=== PATIENT | male | born 1985 | race Caucasian/White ===

== ENCOUNTER 2023-10-30 15:57 | Emergency (ER) | payer MEDICAID, SELFPAY ==
[2023-10-30 16:03] VITALS: BP 156/90; PULSE 97; O2SAT 99
[2023-10-30 16:08] VITALS: BP 126/80; PULSE 87; RESP 18; TEMP 36.6; O2SAT 97; BMI 31.6
--- NOTE | 2023-10-30 16:08 | ED_ITS ---
HPI - Nausea/Vomiting/Diarrhea General Chief complaint: Nausea/Vomiting/Diarrhea Stated complaint: abd pain, pt reports coffee ground like vomiting Time Seen by Provider: 10/30/23 16:37 History of Present Illness HPI Narrative: Patient complains of epigastric pain and nausea for the past 3 days He is methadone dependent but he moved to [place] in his clinic is in [place] and he has has no car and he has not had his methadone in 5 days He denies fever denies diarrhea, there is no headache no confusion no chest pain no shortness of breath no dysuria no fever He also requests refill of his other psychiatric medications and says he has not been able to get them at his pharmacy He denies suicidal or homicidal thoughts, he has not hearing voices denies any psychiatric crisis Related Data Home Medications Medication Instructions Recorded Confirmed methadone 10 mg/mL oral concentrate 135 mg PO DAILY 10/30/23 10/30/23 Previous Rx's Medication Instructions Recorded clonidine HCl 0.2 mg tablet 0.2 mg PO TID #20 tabs 10/30/23 famotidine 20 mg tablet (Pepcid) 20 mg PO BID Reflux pain #14 tabs 10/30/23 gabapentin 300 mg capsule 300 mg PO TID #20 caps 10/30/23 hydroxyzine HCl 50 mg tablet 50 mg PO BID PRN anxiety #7 tabs 10/30/23 olanzapine 5 mg tablet 5 mg PO DAILY #7 tabs 10/30/23 varenicline 1 mg tablet 1 mg PO BID #14 tabs 10/30/23 Allergies Allergy/AdvReac Type Severity Reaction Status Date / Time aspirin [ASPIRIN] Allergy Severe ANAPHYLAXIS Verified 10/30/23 16:07 [facility] Past Medical History Source: nursing notes reviewed Social History Social History Advance Directives: No Advance Directives Information Provided: No Physical Exam 2 Vital Signs: Vital Signs: Last Vital Signs Temp 98.0 F 10/30/23 18:57 Pulse 86 10/30/23 18:57 Resp 17 10/30/23 18:57 BP 144/93 H 10/30/23 18:57 Pulse Ox 98 10/30/23 18:57 O2 Del Method Room Air 10/30/23 18:57 BMI result Body Mass Index 31.6 General appearance mildly uncomfortable, no acute distress The eyes are anicteric no pallor The pharynx is clear mucous membranes are moist Neck is supple Chest is clear to auscultation bilateral with full symmetric equal breath sounds no respiratory distress Heart no murmur Abdomen soft nontender Extremities full range of motion x4 Neuro no focal deficit , interaction comprehension and expression are normal, gait and balance are normal, cranial nerves 2-12 intact as tested Skin no rash Course Course Course Narrative: 16:10pm - 38-year-old male presenting to the ER with complaints of nausea/vomiting and abdominal cramping that all started yesterday. He denies any fevers, chest pain or shortness of breath, recent falls or trauma, recent antibiotic usage, sick contacts or others with similar symptoms, possible bad food exposure, diarrhea constipation, dysuria, black or bloody stools, rashes or any other symptoms complaints or concerns at this time. Plan: Patient was given Zofran while in the triage. Will obtain labs, COVID/RSV/flu swab, UA and patient will be sent back to the waiting room to be evaluated the E Initial exam showed some epigastric tenderness no rebound no guarding no other tenderness in abdomen Patient is 5 days without his methadone and is likely in withdrawal with abdominal discomfort and vomiting His labs were checked chemistry hematology liver function tests lipase, no acute abnormality Serology was negative for COVID and flu He responded well to nausea medication was tolerating both solid and liquid p.o. without nausea or vomiting We called his clinic which confirmed he normally takes 135 mg of methadone As he is 5 days out we discussed with the pharmacist who said a half dose of 70 would be appropriate and he is given 70 mg of methadone He continued to have a mild epigastric discomfort and a repeat exam of his abdomen showed no significant tenderness except mild epigastric tenderness no rebound no guarding He is given Pepcid another Zofran and he tolerates p.o. Case discussed with Dr. tamez who agrees symptoms are likely methadone withdrawal/opiate withdrawal and patient is advised to follow with his methadone clinic tomorrow, they are open and he is advised if symptoms get worse or not improving he can return to the ER any time I also gave a refill for 1 week of his psych meds as he says he is out of medication Medications Administered Discontinued Medications Generic Name Dose Route Start Last Admin Trade Name Freq PRN Reason Stop Dose Admin Famotidine 20 mg 10/30/23 18:22 10/30/23 18:42 Famotidine 20 Mg Tablet PO 10/30/23 18:23 20 mg ONCE ONE Administration Methadone HCl 70 mg 10/30/23 17:31 10/30/23 18:05 Methadone Hcl 20 Mg/2 Ml Oral.Conc PO 10/30/23 17:32 70 mg ONCE ONE Administration Ondansetron HCl 4 mg 10/30/23 16:10 10/30/23 16:12 Ondansetron Odt 4 Mg Tab.Rapdis TRANSLINGU 10/30/23 16:11 4 mg ONCE ONE Administration Ondansetron HCl 4 mg 10/30/23 18:22 10/30/23 18:42 Ondansetron Odt 4 Mg Tab.Rapdis TRANSLINGU 10/30/23 18:23 4 mg ONCE ONE Administration Oxycodone HCl 10 mg 10/30/23 18:52 10/30/23 18:57 Oxycodone Hcl Immed Release 5 Mg Tablet PO 10/30/23 18:53 10 mg ONCE ONE Administration Medical Decision Making Lab Data MDM Lab Attestation statement: I reviewed the patient's lab results. 10/30/23 16:30 10/30/23 16:30 Labs: Lab Results 10/30/23 Range/Units 16:30 WBC 10.0 (4.8-10.8) X10*3/uL RBC 5.11 (4.60-5.80) X10*6/uL Hgb 14.3 (14.0-18.0) g/dl Hct 43.1 (42.0-52.0) % MCV 84.3 (80.0-98.0) fL MCH 28.0 (27.0-33.0) pg MCHC 33.2 (31.0-36.0) g/dl RDW 11.6 (11.0-16.0) % Plt Count 343 (160-400) X10*3/uL MPV 10.2 (9.4-12.4) fL Immature Gran % (Auto) 0.2 (0.0-0.4) % Neut % (Auto) 77.5 H (45-73) % Lymph % (Auto) 15.7 L (20-40) % [place] % (Auto) 6.0 (2-11) % Eos % (Auto) 0.3 (0-4) % Baso % (Auto) 0.3 (0-2) % Lymph # (Auto) 1.6 (1.2-4.9) X10*3/uL [place] # (Auto) 0.6 (0.1-1.2) X10*3/uL Eos # (Auto) 0.0 (0.0-0.4) X10*3/uL Baso # (Auto) 0.0 (0.0-0.2) X10*3/uL Abs Immat Gran (auto) 0.02 (0.00-0.03) X10*3/uL Absolute Neuts (auto) 7.8 (2.0-8.3) x10*3/uL Absolute Nucleated RBC 0.000 (0.0-0.012) X10*3/uL Nucleated RBC % (auto) 0.0 (0.0-0.2) /100WBC Sodium 139 (135-145) mmol/L Potassium 3.8 (3.3-5.1) mmol/L Chloride 100 (96-108) mmol/L Carbon Dioxide 28 (22-29) mmol/L Anion Gap 15 (12-20) BUN 16 (9-16) mg/dL Creatinine 0.84 (0.5-1.4) mg/dL Estim Creat Clear Calc 122.7 Estimated GFR > 60 Random Glucose 99 (60-115) mg/dL Calcium 9.7 (8.4-10.2) mg/dL Magnesium 2.5 (1.6-2.6) mg/dL Total Bilirubin 0.6 (0.0-1.0) mg/dL Direct Bilirubin 0.2 (0.0-0.5) mg/dL AST 17 (5-37) U/L ALT 27 (0-40) U/L Alkaline Phosphatase 100 (39-117) U/L Total Protein 8.1 H (6.5-8.0) g/dL Albumin 4.8 (3.5-5.0) g/dL Lipase 7 L (8-78) U/L Influenza Type A (PCR) NEGATIVE (Negative) Influenza Type B (PCR) NEGATIVE (Negative) RSV RNA Qual (PCR) NEGATIVE (Negative) SARS-CoV-2 RNA (RT-PCR) NEGATIVE (Negative) Discharge Plan Discharge Clinical Impression: Opiate withdrawal, Medication refill Patient Disposition: Home, Self-Care Additional Instructions: I refilled your medications for a week Pepcid helps with stomach acid pain Most importantly think most of your nausea and discomfort is coming from withdrawal as you have not been able to get methadone Best plan is to go to your clinic tomorrow and get your dose, if you can no longer make it your clinic because you do not have a car talk to them and they may be able to find a clinic for you here in [place] Return to the ER any time for any worse condition or any concerns Prescriptions: New clonidine HCl 0.2 mg tablet 0.2 mg PO TID Qty: 20 0RF gabapentin 300 mg capsule 300 mg PO TID Qty: 20 0RF hydroxyzine HCl 50 mg tablet 50 mg PO BID PRN (Reason: anxiety) Qty: 7 0RF varenicline 1 mg tablet 1 mg PO BID Qty: 14 0RF olanzapine 5 mg tablet 5 mg PO DAILY Qty: 7 0RF famotidine [Pepcid] 20 mg tablet 20 mg PO BID Qty: 14 0RF No Action methadone 10 mg/mL Concentrate 135 mg PO DAILY Interventions: ED Discharge Assessment Last Done: 10/30/23 19:32 Discharge Date/Time: 10/30/23 19:33
[2023-10-30] MEDS: Ondansetron ODT 4 MG TAB.RAPDIS TRANSLINGU ×2 (16:12→18:42)
[2023-10-30 16:34] LABS: MANUAL DIFF FLAG NO
[2023-10-30 16:35] LABS: Basophils Percent Auto 0.3 % (0-2); Eosinophils Percent Auto 0.3 % (0-4); Hematocrit 43.1 % (42.0-52.0); Hemoglobin 14.3 g/dl (14.0-18.0); Imm Gran Abs Auto 0.02 X10*3/uL (0.00-0.03); Imm Gran Pct Auto 0.2 % (0.0-0.4); Lymphocytes Absolute Auto 1.6 X10*3/uL (1.2-4.9); Lymphocytes Percent Auto 15.7 % (20-40); Mean Corpuscular HGB Conc 33.2 g/dl (31.0-36.0); Mean Corpuscular Volume 84.3 fL (80.0-98.0); Mean Platelet Volume 10.2 fL (9.4-12.4); Monocytes Absolute Auto 0.6 X10*3/uL (0.1-1.2); Neutrophils Absolute Auto 7.8 x10*3/uL (2.0-8.3); Neutrophils Percent Auto 77.5 % (45-73); Platelet Count 343 X10*3/uL (160-400); Red Blood Count 5.11 X10*6/uL (4.60-5.80); Red Cell Distribution Width 11.6 % (11.0-16.0)
[2023-10-30 16:51] LABS: Alanine Aminotransferase 27 U/L (0-40); Albumin Level 4.8 g/dL (3.5-5.0); Alkaline Phosphatase 100 U/L (39-117); Anion Gap 15 (12-20); Aspartate Amino Transferase 17 U/L (5-37); Bilirubin Direct 0.2 mg/dL (0.0-0.5); Bilirubin Total 0.6 mg/dL (0.0-1.0); Blood Urea Nitrogen 16 mg/dL (9-16); Calcium 9.7 mg/dL (8.4-10.2); Carbon Dioxide 28 mmol/L (22-29); Chloride 100 mmol/L (96-108); Creatinine Clr Calc Pharmacy 122.7; Estimated Glomerular Filt Rate > 60; Glucose Random 99 mg/dL (60-115); Lipase 7 U/L (8-78); Magnesium 2.5 mg/dL (1.6-2.6); Potassium 3.8 mmol/L (3.3-5.1); Sodium 139 mmol/L (135-145); Total Protein 8.1 g/dL (6.5-8.0)
[2023-10-30 17:23] LABS: Influenza A PCR NEGATIVE (Negative); Influenza B PCR NEGATIVE (Negative); Resp Syncy Virus RNA Qual PCR NEGATIVE (Negative); SARS COV2 PCR INHOUSE NEGATIVE (Negative)
--- NOTE | 2023-10-30 17:37 | PC.NURSE ---
methadone dose confirmed with CHELLE cobb T [phone] pt last dose 135mg on 10/24/2023 at 1045- verification faxed to pharmacy
[2023-10-30] MEDS: methADONE HCl 20 MG/2 ML ORAL.CONC 70 MG PO (18:05)
--- NOTE | 2023-10-30 18:30 | HE.PHANOTE ---
re methadone pt [facility], dose of 135 mg last dosed 10/24/23 @1967 emmanuel
[2023-10-30] MEDS: Famotidine 20 MG TABLET PO (18:42)
[2023-10-30 18:57] VITALS: BP 144/93; PULSE 86; RESP 17; TEMP 36.7; O2SAT 98
[2023-10-30] MEDS: oxyCODONE HCl Immed Release 5 MG TABLET 10 MG PO (18:57)
--- NOTE | 2023-10-30 19:04 | PC.NURSE ---
pt medicated per CONSUELO- erin DC'd by BONNIE Gomez
== END 2023-10-30 19:33 | disposition home or self-care (01) ==
PROVIDERS: Physician Assistant Medical; Emergency Provider Emergency Medicine Emergency Medical Services
DX: F11.23 Opioid dependence with withdrawal (principal); Z76.0 Encounter for issue of repeat prescription; Z11.52 Encounter for screening for COVID-19; Z20.828 Contact with and (suspected) exposure to other viral communicable diseases
CPT/HCPCS: 0241U; 80053; 82248; 83690; 83735; 85025; 99283

== ENCOUNTER 2024-04-14 06:03 | Emergency (ER) | payer MEDICAID, SELFPAY ==
--- NOTE | 2024-04-14 | ECG_ITS ---
Test Reason : SOB Blood Pressure : / mmHG Vent. Rate : 087 BPM Atrial Rate : 087 BPM P-R Int : 148 ms QRS Dur : 082 ms QT Int : 398 ms P-R-T Axes : 063 012 027 degrees QTc Int : 478 ms Normal sinus rhythm with sinus arrhythmia Cannot rule out Anterior infarct , age undetermined Abnormal ECG No previous ECGs available Referred By: Generic ED Physician Electronically Signed By:CALEB TRUONG
--- NOTE | ~2024-04-14 | XR_ITS ---
EXAMINATION: XR CHEST CLINICAL INFORMATION: Pain COMPARISON: None available. TECHNIQUE: 2 views of the chest were obtained. FINDINGS: No significant abnormality is noted involving the heart, lungs, mediastinum, bony thorax or soft tissues. XR/XR chest 2V IMPRESSION: Unremarkable examination.
[2024-04-14 06:12] VITALS: BP 137/83; PULSE 98; O2SAT 96
[2024-04-14 06:14] VITALS: BP 139/70; PULSE 90; RESP 18; TEMP 37; O2SAT 96; BMI 33.3
--- NOTE | 2024-04-14 07:15 | ED_ITS ---
HPI - Chest Pain General Chief Complaint: Dyspnea Stated Complaint: SOB Time Seen by Provider: 04/14/24 07:05 Source: patient and old records reviewed Mode of arrival: ambulatory Limitations: no limitations History of Present Illness ED Provider: JORJE SOLANO narrative: 38 yo male with mood disorder, opiate use disorder smoked THC at 2am last night then developed abrupt onset chest tightness felt his L arm was tingly he notes it lasted about 20 min but his arm feels tingly still he used his INH which helped. He thinks there was something in the THC he got it off the straight it tasted like plastic and smelled weird. He denies SI/HI he has no pain now. No coughing. He denies hx of this in the past. He is watching games on his phone using his L hand. MD complaint: chest pain Onset (ago): hour(s) (2am) Timing of current episode: now resolved Prior episodes: No Onset: associated with drug use Pain location: left chest Pain radiation: left arm Severity: moderate Quality: tightness Relieving factors: nothing Exacerbating factors: other Context: other (drug use) Associated symptoms: dyspnea Treatment prior to arrival: other (albuterol) Related Data Home Medications ?Medication ?Instructions ?Recorded ?Confirmed methadone 10 mg/mL oral concentrate 135 mg PO DAILY 10/30/23 10/30/23 Previous Rx's ?Medication ?Instructions ?Recorded clonidine HCl 0.2 mg tablet 0.2 mg PO TID #20 tabs 10/30/23 famotidine 20 mg tablet (Pepcid) 20 mg PO BID Reflux pain #14 tabs 10/30/23 gabapentin 300 mg capsule 300 mg PO TID #20 caps 10/30/23 hydroxyzine HCl 50 mg tablet 50 mg PO BID PRN anxiety #7 tabs 10/30/23 olanzapine 5 mg tablet 5 mg PO DAILY #7 tabs 10/30/23 varenicline 1 mg tablet 1 mg PO BID #14 tabs 10/30/23 Allergies Allergy/AdvReac Type Severity Reaction Status Date / Time aspirin [ASPIRIN] Allergy Severe ANAPHYLAXIS Verified 04/14/24 06:17 Review of Systems 2 Review of Systems: Constitutional : No Weight loss, No Fever, No Chills ENT/Mouth : No sore throat, No Rhinorrhea Eyes: No Eye Pain, No Swelling Cardiovascular : pos Chest Pain, pos SOB, no Dyspnea on Exertion, No Orthopnea, No Edema, No Palpitations Respiratory : No Cough, No Sputum Gastrointestinal : no Nausea, No Vomiting, No Diarrhea, No abdominal Pain, No Hematochezia, No Melena Genitourinary : No Dysuria, No Urinary Frequency Musculoskeletal : No joint pain, No Myalgias, No Joint Swelling Skin : No Skin Lesions, No rash Neuro : No Weakness, pos Numbness, No Dizziness, No Headache Psych : No Anxiety/Panic, No Depression All other systems reviewed and are negative [facility] Past Medical History Attestation statement: The following information was validated with the patient. Source: old records reviewed Medical History Mood disorder Opiate use Social History Social History Smoked in Last 30 Days: No Use of substances other than those prescribed or required for medical reasons: Yes Substance Use Type: Marijuana Advance Directives: No Advance Directives Information Provided: Yes Do you have a plan to hurt others: No Plan Physical Exam 2 Vital Signs: Vital Signs: Last Vital Signs Temp 98.6 F 04/14/24 06:14 Pulse 90 04/14/24 06:14 Resp 18 04/14/24 06:14 BP 130/73 04/14/24 07:28 Pulse Ox 96 04/14/24 06:14 O2 Del Method Room Air 04/14/24 06:14 BMI result Body Mass Index 33.3 Appearance: Alert. Oriented X3. No acute distress. Eyes: Pupils equal, round and reactive to light. ENT: Pharynx normal. Neck: Normal inspection. Neck supple. CVS: Normal heart rate and rhythm. Pulses normal. Respiratory: No respiratory distress. Breath sounds normal. Abdomen: Soft and nontender. Skin: Skin warm and dry. Normal skin color. Normal skin turgor. Extremities: No lower extremity edema. No calf ttp bilateral UE and LE 2+ pulses intact he states he feels like his L arm is more tingly but he can feel me touching his hand Neuro: Oriented X 3. No motor deficit. No sensory deficit. Medications Administered Discontinued Medications Generic Name Dose Route Start Last Admin Trade Name Freq PRN Reason Stop Dose Admin Lorazepam 0.5 mg 04/14/24 07:15 08/18/24 07:31 Lorazepam 0.5 Mg Tablet PO 04/14/24 07:16 0.5 mg ONCE ONE Administration Medical Decision Making Medical Decision Making [facility] Narrative: 38 yo male with mood disorder, opiate use disorder smoked THC at 2am last night here with c/o atypical chest pain, L arm tingling after cocaine use he is NV intact no pain now and BPs and distal pulses intact doubt dissection would be atypical for pain to resolve - at this time the patient is not toxic appearing and he is watching his phone eating and laughing using his L hand. Labs, CXR, EKG, drug screen. Suspect side effect of drug use such as stimulant and cocaine maybe bronchospasm Differential Diagnosis Differential Diagnoses: The differential diagnosis associated with the presentation includes atypical chest pain, PTX, drug use pulses intact BPs symmetric doubt dissection PERC negative doubt VTE Admission/Observation Consideration of admission/observation: Escalation of care including admission/observation considered wants to leave prior to test results aware results are pending does not want to provide urine studies feels fine walking around room alert and oriented clinically sober Lab Data [facility] Lab Attestation statement: I reviewed the patient's lab results. 04/14/24 07:37 04/14/24 07:37 Labs: Lab Results 04/14/24 04/14/24 Range/Units 06:41 07:37 WBC 12.7 H (4.8-10.8) X10*3/uL RBC 4.79 (4.60-5.80) X10*6/uL Hgb 13.8 L (14.0-18.0) g/dl Hct 41.2 L (42.0-52.0) % MCV 86.0 (80.0-98.0) fL MCH 28.8 (27.0-33.0) pg MCHC 33.5 (31.0-36.0) g/dl RDW 11.5 (11.0-16.0) % Plt Count 300 (160-400) X10*3/uL MPV 10.2 (9.4-12.4) fL Immature Gran % (Auto) 0.4 (0.0-0.4) % Neut % (Auto) 63.1 (45-73) % Lymph % (Auto) 24.9 (20-40) % [place] % (Auto) 7.7 (2-11) % Eos % (Auto) 3.5 (0-4) % Baso % (Auto) 0.4 (0-2) % Lymph # (Auto) 3.2 (1.2-4.9) X10*3/uL [place] # (Auto) 1.0 (0.1-1.2) X10*3/uL Eos # (Auto) 0.5 H (0.0-0.4) X10*3/uL Baso # (Auto) 0.1 (0.0-0.2) X10*3/uL Abs Immat Gran (auto) 0.05 H (0.00-0.03) X10*3/uL Absolute Neuts (auto) 8.0 (2.0-8.3) x10*3/uL Absolute Nucleated RBC 0.000 (0.0-0.012) X10*3/uL Nucleated RBC % (auto) 0.0 (0.0-0.2) /100WBC Sodium 139 (135-145) mmol/L Potassium 4.5 (3.3-5.1) mmol/L Chloride 101 (96-108) mmol/L Carbon Dioxide 25 (22-29) mmol/L Anion Gap 18 (12-20) BUN 15 (9-16) mg/dL Creatinine 0.91 (0.5-1.4) mg/dL Estim Creat Clear Calc 116.2 Estimated GFR > 60 Random Glucose 104 (60-115) mg/dL Calcium 9.8 (8.4-10.2) mg/dL Magnesium 2.6 (1.6-2.6) mg/dL Influenza Type A (PCR) NEGATIVE (Negative) Influenza Type B (PCR) NEGATIVE (Negative) RSV RNA Qual (PCR) NEGATIVE (Negative) SARS-CoV-2 RNA (RT-PCR) NEGATIVE (Negative) Independent Interpretation I performed an independent interpretation of an: EKG and Plain X-Ray (normal ) Interpretation: Rate: 74 Rhythm: NSR [place]: normal Normal P waves. Normal MANUELA. Normal QRS complex. ST T wave : inverted t wave III, no ASPEN qTC: 452 prior studies: no acute ischemia The study has been interpreted contemporaneously by me. . Radiology Impression Discussion of test interpretation with radiology: I have reviewed the radiologist's reading. External Record Review External record reviewed: Inpatient record Discharge Plan Discharge Clinical Impression: Atypical chest pain, Paresthesia Patient Disposition: Home, Self-Care Instructions: Chest Pain (ED), Paresthesia (ED) Additional Instructions: not all of your tests results are back in if anything unusual we will call you return for any worsening symptoms or concerns do not smoke that marijuana again suspect it is laced with cocaine or PCP based off your symptoms rest and stay hydrated today you are leaving prior to all your results being back Prescriptions: No Action methadone 10 mg/mL Concentrate 135 mg PO DAILY clonidine HCl 0.2 mg tablet 0.2 mg PO TID Qty: 20 0RF gabapentin 300 mg capsule 300 mg PO TID Qty: 20 0RF hydroxyzine HCl 50 mg tablet 50 mg PO BID PRN (Reason: anxiety) Qty: 7 0RF varenicline 1 mg tablet 1 mg PO BID Qty: 14 0RF olanzapine 5 mg tablet 5 mg PO DAILY Qty: 7 0RF famotidine [Pepcid] 20 mg tablet 20 mg PO BID Qty: 14 0RF Print Language: Telugu
[2024-04-14 07:20] LABS: Influenza A PCR NEGATIVE (Negative); Influenza B PCR NEGATIVE (Negative); Resp Syncy Virus RNA Qual PCR NEGATIVE (Negative); SARS COV2 PCR INHOUSE NEGATIVE (Negative)
[2024-04-14 07:26] VITALS: BP 127/77
[2024-04-14 07:28] VITALS: BP 130/73
[2024-04-14] MEDS: LORazepam 0.5 MG TABLET PO (07:31)
[2024-04-14 07:41] LABS: MANUAL DIFF FLAG NO
[2024-04-14 07:44] LABS: Basophils Absolute Auto 0.1 X10*3/uL (0.0-0.2); Basophils Percent Auto 0.4 % (0-2); Eosinophils Absolute Auto 0.5 X10*3/uL (0.0-0.4); Eosinophils Percent Auto 3.5 % (0-4); Hematocrit 41.2 % (42.0-52.0); Hemoglobin 13.8 g/dl (14.0-18.0); Imm Gran Abs Auto 0.05 X10*3/uL (0.00-0.03); Imm Gran Pct Auto 0.4 % (0.0-0.4); Lymphocytes Absolute Auto 3.2 X10*3/uL (1.2-4.9); Lymphocytes Percent Auto 24.9 % (20-40); Mean Corpuscular HGB Conc 33.5 g/dl (31.0-36.0); Mean Corpuscular Hemoglobin 28.8 pg (27.0-33.0); Mean Platelet Volume 10.2 fL (9.4-12.4); Monocytes Percent Auto 7.7 % (2-11); Neutrophils Percent Auto 63.1 % (45-73); Platelet Count 300 X10*3/uL (160-400); Red Blood Count 4.79 X10*6/uL (4.60-5.80); Red Cell Distribution Width 11.5 % (11.0-16.0); White Blood Count 12.7 X10*3/uL (4.8-10.8)
[2024-04-14 07:55] LABS: Anion Gap 18 (12-20); Blood Urea Nitrogen 15 mg/dL (9-16); Calcium 9.8 mg/dL (8.4-10.2); Carbon Dioxide 25 mmol/L (22-29); Chloride 101 mmol/L (96-108); Creatinine Clr Calc Pharmacy 116.2; Estimated Glomerular Filt Rate > 60; Glucose Random 104 mg/dL (60-115); Potassium 4.5 mmol/L (3.3-5.1); Sodium 139 mmol/L (135-145)
[2024-04-14 08:08] LABS: Magnesium 2.6 mg/dL (1.6-2.6)
[2024-04-14 08:30] VITALS: BP 131/76; PULSE 80; RESP 14; TEMP 36.8; O2SAT 98
[2024-04-14 08:41] LABS: Troponin-I High Sensitivity < 2.7 ng/L (<3.5-35.0)
--- OUTSIDE RECORDS SUMMARY | 2024-04-17 07:07 | XMS_ITS | Continuity of Care Document ---
Author Organization [facility] ter Address [address] [place] [id number]- Care Team Providers Care Hand Or Machine Paster Name Role Phone Not on Staff, PCP Primary Care Physician Unavail able [place] [facility] [place] - 09/21/[address] [id number]- [facility] Encounter Diagnosis Opioid use disorder(Final) - 09/21/19 Discharge Disposition: A-D/C Home Attending Physician: Johnathan Andrade MD Admitting Physician: Johnathan Andrade MD Referring Physician: Not on Staff, Referring MD Allergies, Adverse Reactions, Alerts Substance Reaction Severity Status aspirin Active Immunizations Given and Recorded Vaccine Date Status Refusal Reason tetanus/diphtheria/pertussis, acel(Tdap) 04/14/09 Given Medications albuterol CFC free 90 mcg/inh inhalation aerosol 2 puffs, Inhalation, Every 4 hours, PRN for wheezing, # 75 Gm, 0 Refills, Maintenance, Aerosol Start Date: 10/16/11 Status: Ordered Amoxicillin Capsule 250, mg, By Mouth, 3 times a day, 21, 0, 0, 02/27/07 21:04:49, Print INDIRA Number, ADS OPPTHS, 68, Constant Indicator Start Date: 02/27/07 Stop Date: 03/06/07 Status: Ordered Anusol-HC 2.5% cream with applicator 1 application, Rectally, 2 times a day, # 30 Gm, 0 Refills, Maintenance, 06/30/14 19:53:36, Cream Start Date: 06/30/14 Status: Ordered buprenorphine-naloxone 8 mg-2 mg sublingual tablet, disintegrating 2 tablet, Sublingual, Daily, # 10 tablet, 0 Refills, Maintenance, 11/14/18 22:40:08 EDT, Tablet Start Date: 11/14/18 Status: Ordered Colace sodium 100 mg oral capsule 1 capsule = 100 mg, By Mouth, 2 times a day, PRN for constipation, # 20 capsule, 0 Refills, Maintenance, 06/30/14 19:53:39, Capsule Start Date: 06/30/14 Status: Ordered Crutches See Instructions, 1, 0, 0, 04/05/07 22:20:42, non-weightbearing, leg contusion, [facility] Start Date: 04/05/07 Status: Ordered doxycycline hyclate 100 mg oral capsule 100, mg, 1, capsule, By Mouth, 2 times a day, 14, capsule, 0, 0, 08/08/06 15:21:41, Print INDIRA Number, [facility], [id number], Constant Indicator Start Date: 08/08/06 Stop Date: 08/15/06 Status: Ordered EpiPen 2-Al 0.3 mg injectable kit = 0.3 mg, Intramuscular, Once, # 1 box, 0 Refills, Soft Stop, 08/12/14 17:22:15 Start Date: 08/12/14 Status: Ordered Keflex monohydrate 500 mg oral capsule = 500 mg, By Mouth, 4 times a day, 0 Refills, 5, days Start Date: 04/14/09 Stop Date: 04/19/09 Status: Ordered naloxone 4 mg/0.1 mL nasal spray = 4 mg, Naris, Left, Once, # 2 each, 0 Refills, Soft Stop, 11/14/18 22:41:28 EDT Start Date: 11/14/18 Status: Ordered Narcan 4 mg/0.1 mL nasal spray See Instructions, 4 mg Naris, Left Once for, # 2 each, 0 Refills, Maintenance, 03/06/19 22:16:42 EDT Start Date: 03/06/19 Status: Ordered Narcan 4 mg/0.1 mL nasal spray = 4 mg, Nares, Both, Once, may repeat every 2 to 3 minutes until patient responds PRN overdose, # 2each, 0 Refills, Soft Stop, 09/21/19 13:30:00 EST Start Date: 09/21/19 Status: Ordered Percocet-5 Tablet 1, tablet, By Mouth, Every 6 hours, Scheduled / PRN, 8, tablet, 0, 0, 02/27/07 21:04:08, as needed for pain, Print INDIRA Number, ADS OPPTHS, 54 Start Date: 02/27/07 Status: Ordered Percocet-5/325 325 mg-5 mg oral tablet 1 tablet, By Mouth, Every 6 hours, PRN Pain , Moderate, # 12 tablet, 0 Refills, Maintenance Start Date: 04/15/12 Stop Date: 04/18/12 Status: Ordered podofilox topical 0.5% solution See Instructions, 1, bottle, 0, 0, 08/02/06 18:03:10, apply bid x 3 days to affected area, repeat qweek x 4 wks, Print INDIRA Number, ADS OPPTHS, Constant Indicator Start Date: 08/02/06 Status: Ordered Pyridium 200 mg oral tablet 200, mg, 1, tablet, By Mouth, 3 times a day, 6, tablet, 0, 0, 08/02/06 18:12:31, Print INDIRA Number, ADS OPPTHS, 68, Constant Indicator Start Date: 08/02/06 Stop Date: 08/04/06 Status: Ordered Suboxone 8 mg-2 mg sublingual film See Instructions, 1 Sublingual film twice Daily for seven days, 0 Refills, Maintenance, 03/12/19 16:19:47 EDT Start Date: 03/12/19 Status: Ordered Suboxone 8 mg-2 mg sublingual film 1 film, Sublingual, Daily, dissolve under the tongue, # 1 film, 0 Refills, Maintenance, 09/21/19 14:14:00 EST, Film, [facility] #[id number], 1 film Sublingual Daily,Instr:dissolve under the tongue, 166, cm, 03/07/19 1:45:00 EDT, Height, 59, kg, 03/23/19 1... Start Date: 09/21/19 Stop Date: 09/22/19 Status: Ordered suboxone 8mg/2mg SL films suboxone 8mg/2mg SL films, 2 films, Sublingual, Daily, # 8 film, Refills 0, Tot. Refills 0, Maintenance, Take as directed, 03/06/19 22:22:14 EDT, Compound Start Date: 03/06/19 Stop Date: 03/10/19 Status: Ordered Tylenol Sinus Gelcap oral tablet 1, tablet, By Mouth, 4 times a day, 50, tablet, 0, 0, 11/03/06 11:57:55, Print INDIRA Number, ADS OPPTHS, 65, Constant Indicator Start Date: 11/03/06 Status: Ordered Tylox 500 mg-5 mg oral capsule 1 capsule, By Mouth, Every 6 hours, # 10 capsule, 0 Refills Start Date: 04/14/09 Stop Date: 04/21/09 Status: Ordered Vital Signs Most recent to oldest [Reference Range]: 1 2 3 Oxygen Saturation [94-100 %] 100 % (09/21/19 1:00 PM) 100 % (09/21/19 10:45 AM) 100 % (09/21/19 10:06 AM) Pulse Rate [55-90 bpm] 80 bpm (09/21/19 1:00 PM) 85 bpm (09/21/19 10:45 AM) 77 bpm (09/21/19 10:06 AM) Blood Pressure [90-138/55-84 mm Hg] 122/70mm Hg (09/21/19 1:00 PM) 119/67mm Hg (09/21/19 10:45 AM) 116/76mm Hg (09/21/19 10:06 AM) Respiratory Rate [16-30 br/min] 16 br/min (09/21/19 1:00 PM) 16 br/min (09/21/19 10:45 AM) 12 br/min *L* (09/21/19 10:06 AM) Temperature [96.8-100.4 DegF] 98.0 DegF (09/21/19 10:06 AM) Mode of Delivery (Oxygen) Room air (09/21/19 1:00 PM) Room air (09/21/19 10:45 AM) Room air (09/21/19 10:06 AM) Blood pressure sites Arm, right (09/21/19 1:00 PM) Arm, right (09/21/19 10:45 AM) Arm, right (09/21/19 10:06 AM) Temperature Route Oral (09/21/19 10:06 AM) Social History Social History Type Response Smoking Status Never (less than 100 in lifetime) entered on: 11/14/18 Sex
--- OUTSIDE RECORDS SUMMARY | 2024-04-17 07:07 | XMS_ITS | Continuity of Care Document ---
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 Name Role Phone Not on Staff, PCP Primary Care Physician Unavail able Encounter [facility] [place] Date(s): 02/27/20 - 02/28/[address] [address]- [facility] Encounter Diagnosis Altered mental status(Final) - 02/28/20 Discharge Disposition: A-D/C Home Attending Physician: Brodie Jolley MD Admitting Physician: Brodie Jolley MD Referring Physician: Not on Staff, Referring MD Allergies, Adverse Reactions, Alerts Substance Reaction Severity Status aspirin Active Immunizations Given and Recorded Vaccine Date Status Refusal Reason tetanus/diphtheria/pertussis, acel(Tdap) 04/14/09 Given Medications albuterol CFC free 90 mcg/inh inhalation aerosol 2 puffs, Inhalation, Every 4 hours, PRN for wheezing, # 75 Gm, 0 Refills, Maintenance, Aerosol Start Date: 10/16/11 Status: Ordered CeleXA 20 mg oral tablet 20 mg, 1, tablet, By Mouth, Daily, Refills 0, Maintenance, 12/05/19 13:40:00 EDT Start Date: 12/05/19 Stop Date: 01/04/20 Status: Ordered cloNIDine 0.1 mg oral tablet 0.1 mg, 1, tablet, By Mouth, 3 times a day, Refills 0, Maintenance, 12/05/19 13:55:00 EDT Start Date: 12/05/19 Status: Ordered Crutches See Instructions, 1, 0, 0, 04/05/07 22:20:42, non-weightbearing, leg contusion, ADS OPPTHS Start Date: 04/05/07 Status: Ordered Multivitamin 1 tablet, By Mouth, Daily, 0 Refills, Maintenance, 12/05/19 13:56:00 EDT Start Date: 12/05/19 Stop Date: 01/04/20 Status: Ordered Narcan 4 mg/0.1 mL nasal spray = 4 mg, Nares, Both, Once, may repeat every 2 to 3 minutes until patient responds PRN overdose, # 2each, 0 Refills, Soft Stop, 09/21/19 13:30:00 EST Start Date: 09/21/19 Status: Ordered SEROquel 200 mg oral tablet 200 mg, 1, tablet, By Mouth, Daily at bedtime, Refills 0, Maintenance, 12/05/19 13:57:00 EDT Start Date: 12/05/19 Status: Ordered Suboxone 8 mg-2 mg sublingual film 1 film, Sublingual, 2 times a day, 0 Refills, Maintenance, 12/05/19 13:38:00 EDT Start Date: 12/05/19 Stop Date: 01/02/20 Status: Ordered Tylenol 325 mg oral tablet 650 mg, 2, tablet, By Mouth, Every 4 hours, Refills 0, Maintenance, 12/05/19 14:00:00 EDT Start Date: 12/05/19 Status: Ordered Vistaril pamoate 50 mg oral capsule 1 capsule = 50 mg, By Mouth, 3 times a day, 0 Refills, Maintenance, 12/05/19 13:41:00 EDT Start Date: 12/05/19 Stop Date: 01/04/20 Status: Ordered Vital Signs Most recent to oldest [Reference Range]: 1 2 3 Oxygen Saturation [94-100 %] 99 % (02/28/20 5:56 AM) 95 % (02/28/20 3:02 AM) 97 % (02/28/20 12:40 AM) Pulse Rate [55-90 bpm] 88 bpm (02/28/20 5:56 AM) 94 bpm *H* (02/28/20 3:02 AM) 80 bpm (02/28/20 12:40 AM) Blood Pressure [90-138/55-84 mm Hg] 124/87mm Hg (02/28/20 5:56 AM) 124/64mm Hg (02/28/20 3:02 AM) 107/60mm Hg (02/28/20 12:40 AM) Respiratory Rate [16-30 br/min] 16 br/min (02/28/20 5:56 AM) 18 br/min (02/28/20 3:02 AM) 15 br/min *L* (02/28/20 12:40 AM) Temperature [96.8-100.4 DegF] 98.0 DegF (02/28/20 5:56 AM) 98.0 DegF (02/27/20 9:17 PM) Mode of Delivery (Oxygen) Room air (02/28/20 5:56 AM) Room air (02/28/20 3:02 AM) Room air (02/28/20 12:40 AM) Blood pressure sites Arm, left (02/28/20 5:56 AM) Arm, right (02/28/20 3:02 AM) Arm, left (02/28/20 12:40 AM) Temperature Route Oral (02/28/20 5:56 AM) Oral (02/27/20 9:17 PM) Social History Social History Type Response Smoking Status Never (less than 100 in lifetime) entered on: 11/14/18 Sex
--- OUTSIDE RECORDS SUMMARY | 2024-04-17 07:07 | XMS_ITS | Continuity of Care Document ---
Author Organization [facility] ter Address [address] [place] [address]- Care Team Providers Care Roving Hand Name Role Phone Not on Staff, PCP Primary Care Physician Unavail able Encounter [facility] [place] Date(s): 03/11/20 - 03/12/[address] [address]- [facility] Discharge Disposition: A-D/C Home Attending Physician: Gume Burgos DO Admitting Physician: Gume Burgos DO Referring Physician: Not on Staff, Referring MD [...] 1 2 3 Oxygen Saturation [94-100 %] 96 % (03/12/20 2:49 PM) 96 % (03/12/20 6:10 AM) 95 % (03/12/20 3:09 AM) Pulse Rate [55-90 bpm] 72 bpm (03/12/20 2:49 PM) 89 bpm (03/12/20 6:10 AM) 84 bpm (03/12/20 3:09 AM) Blood Pressure [90-138/55-84 mm Hg] 121/79mm Hg (03/12/20 2:49 PM) 133/39mm Hg (03/12/20 6:10 AM) 131/63mm Hg (03/12/20 3:09 AM) Respiratory Rate [16-30 br/min] 17 br/min (03/12/20 2:49 PM) 16 br/min (03/12/20 6:10 AM) 18 br/min (03/12/20 3:09 AM) Temperature [96.8-100.4 DegF] 98.1 DegF (03/12/20 2:49 PM) 98.0 DegF (03/12/20 6:10 AM) 98.4 DegF (03/12/20 3:09 AM) Liters per Minute 0 L/min (03/12/20 2:49 PM) Mode of Delivery (Oxygen) Room air (03/12/20 2:49 PM) Room air (03/12/20 6:10 AM) Room air (03/12/20 3:09 AM) Blood pressure sites Arm, right (03/12/20 2:49 PM) Arm, right (03/12/20 6:10 AM) Arm, right (03/12/20 3:09 AM) Temperature Route Oral (03/12/20 2:49 PM) Oral (03/12/20 6:10 AM) Oral (03/12/20 3:09 AM) Social History Social History Type Response Smoking Status Never (less than 100 in lifetime) entered on: 11/14/18 Sex Male
--- OUTSIDE RECORDS SUMMARY | 2024-04-17 07:07 | XMS_ITS | Continuity of Care Document ---
Author Organization [facility] ter Address [address] [place] [address]- Care Team Providers Care Peoplesoft Financials Name Role Phone Brenda CUNNINGHAM, Yun Primary Care Physician [phone] Encounter [facility] Date(s): 05/09/22 - 05/10/[address] [address]- Discharge Disposition: A-D/C AMA Attending Physician: Kingston Logan MD Admitting Physician: Kingston Logan MD Referring Physician: Not on Staff, Referring MD Allergies, Adverse Reactions, Alerts Substance Reaction Severity Status aspirin Active Immunizations Given and Recorded Vaccine Date Status Refusal Reason tetanus/diphtheria/pertussis, acel(Tdap) 1 01/25/22 Given tetanus/diphtheria/pertussis, acel(Tdap) 10/01/20 Given tetanus/diphtheria/pertussis, acel(Tdap) 10/03/19 Recorded tetanus/diphtheria/pertussis, acel(Tdap) 04/14/09 Given influenza virus vaccine, inactivated 09/30/21 Give n influenza virus vaccine, inactivated 10/03/19 Trae rded SARS-CoV-2 (COVID-19) mRNA-[id number] vaccine 02/11/21 R ecorded Hepatitis A Adult Vaccine 11/24/08 Recorded Hepatitis A Adult Vaccine 05/20/08 Recorded hepatitis B adult vaccine 10/20/08 Recorded hepatitis B adult vaccine 07/01/08 Recorded hepatitis B adult vaccine 05/20/08 Recorded 1Early/Late Reason: Early/Late Reason: Other : pt asleep Medications albuterol CFC free 90 mcg/inh inhalation aerosol 2, puffs, Inhalation, Every 4 hours, PRN, # 75 Gm, Refills 0, Tot. Refills 0, Maintenance, 09/30/2211:03:00 EST, Aerosol, Print Requisition Start Date: 09/30/21 Status: Ordered buprenorphine-naloxone 8 mg-2 mg sublingual film Sublingual, Daily, 0 Refills, Maintenance, 01/28/22 11:53:00 EDT, Film, Partial fill upon patient request if the prescription is for a schedule II opioid drug. Start Date: 01/28/22 Status: Ordered cloNIDine 0.2 mg oral tablet 0.2 mg, 1, tablet, By Mouth, 2 times a day, # 180 tablet, Refills 0, Maintenance, 05/10/22 2:30:00 EDT, Partial fill upon patient request if the prescription is for a schedule II opioid drug. Start Date: 05/10/22 Status: Ordered FLUoxetine 20 mg oral capsule 20 mg, 1, capsule, By Mouth, Daily, # 30 capsule, Refills 0, Maintenance, 05/10/22 2:30:00 EDT, Partial fill upon patient request if the prescription is for a schedule II opioid drug. Start Date: 05/10/22 Status: Ordered folic acid 1 mg oral tablet 1 mg, 1, tablet, By Mouth, Daily, Refills 0, Maintenance, 01/28/22 11:53:00 EDT, Partial fill upon patient request if the prescription is for a schedule II opioid drug. Start Date: 01/28/22 Status: Ordered gabapentin 300 mg oral capsule 300 mg, 1, capsule, By Mouth, 3 times a day, # 270 capsule, Refills 0, Maintenance, 05/10/22 2:30:00 EDT, Partial fill upon patient request if the prescription is for a schedule II opioid drug. Start Date: 05/10/22 Status: Ordered gabapentin 300 mg oral capsule 300 mg, Capsule, By Mouth, 05/10/22 9:00:00 EDT Start Date: 05/10/22 Stop Date: 05/10/22 Status: Completed gabapentin 300 mg oral capsule 300 mg, Capsule, By Mouth, 05/10/22 15:00:00 EDT Start Date: 05/10/22 Stop Date: 05/10/22 Status: Completed multivitamin Vitamin B Complex oral capsule 1 capsule, By Mouth, Daily, # 30 capsule, 0 Refills, Maintenance, 09/30/21 12:03:00 EST, Tablet, Partial fill upon patient request if the prescription is for a schedule II opioid drug. Start Date: 09/30/21 Status: Ordered olanzapine 15 mg oral tablet 1 tablet = 15 mg, By Mouth, Daily, # 30 tablet, 0 Refills, Maintenance, 05/10/22 2:30:00 EDT, Tablet, Partial fill upon patient request if the prescription is for a schedule II opioid drug. Start Date: 05/10/22 Status: Ordered prazosin 1 mg oral capsule 1 mg, 1, capsule, By Mouth, 2 times a day, Refills 0, Maintenance, 05/10/22 2:30:00 EDT, Partial fill upon patient request if the prescription is for a schedule II opioid drug. Start Date: 05/10/22 Status: Ordered prazosin 1 mg oral capsule 1 mg, Capsule, By Mouth, 05/10/22 9:00:00 EDT Start Date: 05/10/22 Stop Date: 05/10/22 Status: Completed prazosin 1 mg oral capsule 1 mg, 1, capsule, By Mouth, Daily at bedtime, # 30 capsule, Refills 0, Tot. Refills 0, Maintenance,09/30/21 12:03:00 EST, Print Requisition, Partial fill upon patient request if the prescription is for a schedule II opioid drug. Start Date: 09/30/21 Status: Ordered QUEtiapine 200 mg oral tablet 200 mg, 1, tablet, By Mouth, 2 times a day, # 180 tablet, Refills 0, Maintenance, 05/10/22 2:30:00 EDT, Partial fill upon patient request if the prescription is for a schedule II opioid drug. Start Date: 05/10/22 Status: Ordered Suboxone 8 mg-2 mg sublingual film 1 film, Sublingual, Daily, dissolve under the tongue, 0 Refills, Maintenance, 05/10/22 2:30:00 EDT,Film, Partial fill upon patient request if the prescription is for a schedule II opioid drug. Start Date: 05/10/22 Status: Ordered Suboxone 8 mg-2 mg Sublingual Film 2 film, Sublingual, Daily, or as directed dissolve under the tongue [id number], # 10 film, 0 Refills, Maintenance, 05/10/22 8:30:00 EDT, [facility], Partial fill upon patient request if the prescription is for a schedule II opioid gus... Start Date: 05/10/22 Stop Date: 05/15/22 Status: Ordered thiamine 100 mg oral tablet 100 mg, 1, tablet, By Mouth, 2 times a day, Refills 0, Maintenance, 01/28/22 11:53:00 EDT, Partial fill upon patient request if the prescription is for a schedule II opioid drug. Start Date: 01/28/22 Status: Ordered traZODone 100 mg oral tablet 100 mg, 1, tablet, By Mouth, Daily at bedtime, Refills 0, Maintenance, 05/10/22 2:30:00 EDT, Partial fill upon patient request if the prescription is for a schedule II opioid drug. Start Date: 05/10/22 Stop Date: 06/09/22 Status: Ordered Tylenol 325 mg oral tablet 650 mg, 2, tablet, By Mouth, Every 6 hours, PRN, Refills 0, Maintenance, Pain , Mild, 09/30/21 11:59:00 EST, Partial fill upon patient request if the prescription is for a schedule II opioid drug. Start Date: 09/30/21 Status: Ordered ZyPREXA 5 mg oral tablet 5 mg, 1, tablet, By Mouth, 2 times a day, Refills 0, Maintenance, 01/28/22 11:53:00 EDT, Partial fill upon patient request if the prescription is for a schedule II opioid drug. Start Date: 01/28/22 Status: Ordered Problem List Condition Effective Dates Status Health Status Inform ant Asthma(Confirmed) Active Depression(Confirmed) Active DIAMOND (generalized anxiety disorder)(Confirmed) Active Obese class I(Confirmed) Active Opiate dependence(Confirmed) Active Vital Signs Most recent to oldest [Reference Range]: 1 2 3 Oxygen Saturation [94-100 %] 100 % (05/10/22 7:44 AM) 99 % (05/10/22 3:58 AM) 98 % (05/09/22 11:24 PM) Pulse Rate [55-90 bpm] 60 bpm (05/10/22 7:44 AM) 60 bpm (05/10/22 3:58 AM) 100 bpm *H* (05/09/22 11:24 PM) Blood Pressure [90-138/55-84 mm Hg] 120/78mm Hg (05/10/22 7:44 AM) 120/78mm Hg (05/10/22 7:43 AM) 121/50mm Hg (05/10/22 3:58 AM) Respiratory Rate [16-30 br/min] 16 br/min (05/10/22 5:22 PM) 18 br/min (05/10/22 4:22 PM) 18 br/min (05/10/22 8:43 AM) Temperature [96.8-100.4 DegF] 98.3 DegF (05/10/22 7:44 AM) 98.4 DegF (05/10/22 3:58 AM) 98.5 DegF (05/09/22 11:24 PM) Mode of Delivery (Oxygen) Room air (05/10/22 7:44 AM) Room air (05/10/22 3:58 AM) Room air (05/09/22 11:24 PM) Blood pressure sites Arm, right (05/10/22 7:44 AM) Arm, left (05/10/22 3:58 AM) Arm, left (05/09/22 11:24 PM) Temperature Route Oral (05/10/22 7:44 AM) Oral (05/10/22 3:58 AM) Oral (05/09/22 11:24 PM) Social History Social History Type Response Smoking Status Never (less than 100 in lifetime) entered on: 11/14/18 Sex Care Team Personnel Name: Yun Gutierrez NP Address: [address] [place] [address]
--- OUTSIDE RECORDS SUMMARY | 2024-04-17 07:07 | XMS_ITS | Continuity of Care Document ---
Author Organization [facility] Address [address] [place] [address]- Care Team Providers Care Ethics Manager Name Role Phone Yue CAGE, Mckay Navarro Primary Care Physician Encounter [facility] [place] Date(s): 12/04/19 - 12/06/[address] [address]- [facility] Discharge Disposition: A-D/C Home Attending Physician: Guillermina Ayers MD Admitting Physician: Leonides Hooper MD Referring Physician: Not on Staff, Referring [...] 13:30:00 EST Start Date: 09/21/19 Status: Ordered penicillin V potassium 500 mg oral tablet 1 tablet = 500 mg, By Mouth, 3 times a day, for 5 days, # 15 tablet, 0 Refills, Acute 12/11/19 13:35:00 EDT, 12/06/19 13:35:00 EDT, Tablet, [facility], 166, cm, 03/07/19 1:45:00 EDT, Height, 59, kg, 03/23/19 12:13:00 EDT, Dry Weight Start Date: 12/06/19 Stop Date: 12/11/19 Status: Ordered SEROquel 200 mg oral tablet [...] 3 Oxygen Saturation [94-100 %] 100 % (12/06/19 4:37 AM) 98 % (12/05/19 9:15 PM) 100 % (12/05/19 2:00 PM) Pulse Rate [55-90 bpm] 92 bpm *H* (12/06/19 4:37 AM) 90 bpm (12/05/19 11:11 PM) 87 bpm (12/05/19 9:15 PM) Blood Pressure [90-138/55-84 mm Hg] 148/77mm Hg *H* (12/06/19 4:37 AM) 128/70mm Hg (12/05/19 11:11 PM) 126/81mm Hg (12/05/19 9:15 PM) Respiratory Rate [16-30 br/min] 18 br/min (12/06/19 4:37 AM) 18 br/min (12/05/19 11:11 PM) 18 br/min (12/05/19 9:15 PM) Temperature [96.8-100.4 DegF] 98.2 DegF (12/06/19 4:37 AM) 97.5 DegF (12/05/19 11:11 PM) 97.5 DegF (12/05/19 9:15 PM) Mode of Delivery (Oxygen) Room air (12/06/19 4:37 AM) Room air (12/05/19 9:15 PM) Room air (12/05/19 2:00 PM) Blood pressure sites Arm, right (12/06/19 4:37 AM) Arm, right (12/05/19 9:15 PM) Arm, right (12/05/19 2:00 PM) Temperature Route Oral (12/06/19 4:37 AM) Oral (12/05/19 11:11 PM) Oral (12/05/19 9:15 PM) Social History Social History Type Response Smoking Status Never (less than 100 in lifetime) entered on: 11/14/18 Sex
--- OUTSIDE RECORDS SUMMARY | 2024-04-17 07:07 | XMS_ITS | Continuity of Care Document ---
Author Organization [facility] ter Address [address] [place] [address]- Care Team Providers Care Coach Cleaner Name Role Phone Brenda CUNNINGHAM, Yun Primary Care Physician Encounter [facility] [place] Date(s): 08/22/21 - 10/01/[address] [address]- Attending Physician: Tristan East MD Admitting Physician: Tristan East MD Referring Physician: Tristan East MD Allergies, Adverse Reactions, Alerts Substance Reaction Severity Status aspirin Active Immunizations Given and Recorded Vaccine Date Status Refusal Reason influenza virus vaccine, inactivated 09/30/21 Give n influenza virus vaccine, inactivated 10/03/19 Trae rded SARS-CoV-2 (COVID-19) mRNA-[id number] vaccine 02/11/21 R ecorded tetanus/diphtheria/pertussis, acel(Tdap) 10/01/20 Given tetanus/diphtheria/pertussis, acel(Tdap) 10/03/19 Recorded tetanus/diphtheria/pertussis, acel(Tdap) 04/14/09 Given Hepatitis A Adult Vaccine 11/24/08 Recorded Hepatitis A Adult Vaccine 05/20/08 Recorded hepatitis B adult vaccine 10/20/08 Recorded hepatitis B adult vaccine 07/01/08 Recorded hepatitis B adult vaccine 05/20/08 Recorded Medications albuterol CFC free 90 mcg/inh inhalation aerosol 2, puffs, Inhalation, Every 4 hours, PRN, # 75 Gm, Refills 0, Tot. Refills 0, Maintenance, 09/30/2211:03:00 EST, Aerosol, Print Requisition Start Date: 09/30/21 Status: Ordered FLUoxetine 10 mg oral tablet 1 tablet = 10 mg, By Mouth, Daily, # 30 tablet, 0 Refills, Maintenance, 09/30/21 11:58:00 EST, Tablet, Partial fill upon patient request if the prescription is for a schedule II opioid drug. Start Date: 09/30/21 Status: Ordered multivitamin Vitamin B Complex oral capsule 1 capsule, By Mouth, Daily, # 30 capsule, 0 Refills, Maintenance, 09/30/21 12:03:00 EST, Tablet, Partial fill upon patient request if the prescription is for a schedule II opioid drug. Start Date: 09/30/21 Status: Ordered prazosin 1 mg oral capsule 1 mg, 1, capsule, By Mouth, Daily at bedtime, # 30 capsule, Refills 0, Tot. Refills 0, Maintenance,09/30/21 12:03:00 EST, Print Requisition, Partial fill upon patient request if the prescription is for a schedule II opioid drug. Start Date: 09/30/21 Status: Ordered Suboxone 8 mg-2 mg sublingual film 2 film, Sublingual, Daily, 2 films dissolved under the tongue daily for 7 days. ED Providers INDIRA-X: Providers, Click Modify Details and Type INDIRA-X here , # 14 film, 0 Refills, Maintenance, 09/30/21 12:04:00 EST, Partial fill upon patient request if t... Start Date: 09/30/21 Stop Date: 10/07/21 Status: Ordered Tylenol 325 mg oral tablet 650 mg, 2, tablet, By Mouth, Every 6 hours, PRN, Refills 0, Maintenance, Pain , Mild, 09/30/21 11:59:00 EST, Partial fill upon patient request if the prescription is for a schedule II opioid drug. Start Date: 09/30/21 Status: Ordered ZyPREXA 10 mg oral tablet 10 mg, 1, tablet, By Mouth, Daily at bedtime, # 30 tablet, Refills 0, Tot. Refills 0, Maintenance, 09/30/21 11:59:00 EST, Print Requisition, Partial fill upon patient request if the prescription is for a schedule II opioid drug. Start Date: 09/30/21 Status: Ordered Problem List Condition Effective Dates Status Health Status Inform ant Obese class I(Confirmed) Active Opiate dependence(Confirmed) Active Social History Social History Type Response Smoking Status Never (less than 100 in lifetime) entered on: 11/14/18 Sex Male
--- OUTSIDE RECORDS SUMMARY | 2024-04-17 07:07 | XMS_ITS | Continuity of Care Document ---
Author Organization [facility] ter Address [address] [place] [address]- Care Team Providers Care Airport Operations Manager Name Role Phone Brenda CUNNINGHAM, Yun Primary Care Physician Encounter [facility] [place] Date(s): 04/09/21 - 04/10/[address] [address]- Encounter Diagnosis Alcohol intoxication(Final) - 04/09/21 Discharge Disposition: A-D/C Home Attending Physician: Ayaan Winter MD Admitting Physician: Ayaan Winter MD Referring Physician: Not on Staff, Referring MD Allergies, Adverse Reactions, Alerts Substance Reaction Severity Status aspirin Active Immunizations Given and Recorded Vaccine Date Status Refusal Reason tetanus/diphtheria/pertussis, acel(Tdap) 10/01/20 Given tetanus/diphtheria/pertussis, acel(Tdap) 04/14/09 Given Medications albuterol CFC [...] mL nasal spray See Instructions, 4 mg Once, # 2 each, 3 Refills, Soft Stop, 10/02/20 8:26:00 EST, [facility], Partial fill upon patient request if the prescription is for a schedule II opioid drug., 166, cm, 03/07/19 1:45:00 EDT, Height, 59, kg, 03/23/... Start Date: 10/02/20 Status: Ordered Narcan 4 mg/0.1 mL nasal spray See Instructions, 4 mg Once, # 2 each, 2 Refills, Soft Stop, 11/18/20 7:06:00 EDT, [facility], Partial fill upon patient request if the prescription is for a schedule II opioid drug., 166, cm, 03/07/19 1:45:00 EDT, Height, 59, kg, 03/23/... Start Date: 11/18/20 Status: Ordered Narcan 4 mg/0.1 mL nasal [...] 1 2 3 Oxygen Saturation [94-100 %] 97 % (04/10/21 5:17 AM) 97 % (04/10/21 2:40 AM) 97 % (04/09/21 11:43 PM) Pulse Rate [55-90 bpm] 70 bpm (04/10/21 5:17 AM) 75 bpm (04/10/21 2:40 AM) 79 bpm (04/09/21 11:43 PM) Blood Pressure [90-138/55-84 mm Hg] 111/72mm Hg (04/10/21 5:17 AM) 110/72mm Hg (04/10/21 2:40 AM) 138/70mm Hg (04/09/21 11:43 PM) Respiratory Rate [16-30 br/min] 16 br/min (04/10/21 5:17 AM) 19 br/min (04/10/21 2:40 AM) 19 br/min (04/09/21 11:43 PM) Temperature [96.8-100.4 DegF] 97.4 DegF (04/10/21:17 AM) Liters per Minute 2 L/min (04/09/21 8:29 PM) Mode of Delivery (Oxygen) Room air (04/10/21 5:17 AM) Room air (04/10/21 2:40 AM) Room air (04/09/21 11:43 PM) Blood pressure sites Arm, right (04/10/21 5:17 AM) Arm, left (04/10/21 2:40 AM) Arm, left (04/09/21 11:43 PM) Temperature Route Axillary (04/10/21 5:17 AM) Weight Obtained Via uto (04/09/21 8:29 PM) Dry Weight Obtained Via uto (04/09/21 8:29 PM) Social History Social History Type Response Smoking Status Never (less than 100 in lifetime) entered on: 11/14/18 Sex Male
--- OUTSIDE RECORDS SUMMARY | 2024-04-17 07:07 | XMS_ITS | Continuity of Care Document ---
Author Organization [facility] ter Address [address] [place] [address]- Care Team Providers Care Physical Education Professor Name Role Phone Brenda CUNNINGHAM, Yun Primary Care Physician [place] [facility] [place] - 09/18/[address] [address]- Discharge Disposition: A-D/C Home Attending Physician: Caty Francois MD Admitting Physician: Caty Francois MD Referring Physician: Not on Staff, Referring MD Allergies, Adverse Reactions, Alerts Substance Reaction Severity Status aspirin Active Immunizations Given and Recorded Vaccine Date Status Refusal Reason tetanus/diphtheria/pertussis, acel(Tdap) 1 01/25/22 Given tetanus/diphtheria/pertussis, acel(Tdap) 10/01/20 Given tetanus/diphtheria/pertussis, acel(Tdap) 10/03/19 Recorded tetanus/diphtheria/pertussis, acel(Tdap) 04/14/09 Given SARS-CoV-2 (COVID-19) mRNA-1273 vaccine 11/25/21 R ecorded SARS-CoV-2 (COVID-19) mRNA-1273 vaccine 02/11/21 R ecorded influenza virus vaccine, inactivated 09/30/21 Give n influenza virus vaccine, inactivated 10/03/19 Trae rded Hepatitis A Adult Vaccine 11/24/08 Recorded Hepatitis [...] Print Requisition Start Date: 09/30/21 Status: Ordered cloNIDine 0.2 mg oral tablet [...] opioid drug. Start Date: 05/10/22 Status: Ordered multivitamin Vitamin B Complex oral [...] opioid drug. Start Date: 05/10/22 Status: Ordered QUEtiapine 200 mg oral tablet 200 mg, 1, tablet, By Mouth, 2 times a day, # 180 tablet, Refills 0, Maintenance, 05/10/22 2:30:00 EDT, Partial fill upon patient request if the prescription is for a schedule II opioid drug. Start Date: 05/10/22 Status: Ordered Suboxone 8 mg-2 mg Sublingual Film 2 film, Sublingual, Daily, or as directed dissolve under the tongue [id number], # 10 film, 0 Refills, Maintenance, 05/10/22 8:30:00 EDT, [facility] 3, Partial fill upon patient request if [...] Date: 01/28/22 Status: Ordered Problem List Condition Confirmation Course Effective Dates Status Health St atus Informant Asthma Confirmed Active Depression Confirmed Active DIAMOND (generalized anxiety disorder) Confirmed Active Obese class I Confirmed Active Opiate dependence Confirmed Active Vital Signs Most recent to oldest [Reference Range]: 1 Oxygen Saturation [94-100 %] 93 % *L* (09/18/22 5:32 PM) Pulse Rate [55-90 bpm] 117 bpm *H* (09/18/22 5:32 PM) Blood Pressure [90-138/55-84 mm Hg] 135/ 72mm Hg (09/18/22 5:32 PM) Respiratory Rate [16-30 br/min] 18 br/mi n (09/18/22 5:32 PM) Temperature [96.8-100.4 DegF] 99.1 DegF (09/18/22 5:32 PM) Mode of Delivery (Oxygen) Room air (09/18/22 5:32 PM) Blood pressure sites Arm, left (09/18/22 5:32 PM) Temperature Route Oral (09/18/22 5:32 PM) Social History Social History Type Response Smoking Status Never (less than 100 in lifetime) entered on: 11/14/18 Sex Note * Caty Francois MD: PERFORM, SIGN, VERIFY Event Display: Patient Education Handout Authored Date: [id number] * Caty Francois MD: PERFORM Event Display: Patient Education Leaflets Authored Date: [id number] Cocaine And Crack Abuse ?? 348127ic Abuso De La Coca??na Y El Crack [Cocaine &&Crack Abuse] ?La??coca??na t??picamente se aspira por la nariz o se inyecta intravenosamente (IV). El??crack sehace con la coca??na y puede fumarse causando un efecto mucho m??s potente.??La??coca??na crea??unadependencia psicol??gica muy poderosa. Elda vez que usted tiene dependencia psicol??gica, inderjit?? todo lo posible por conseguir la droga y recrear la sensaci??n que ??sta produce. Regal puede aumentar parra riesgo??de lo siguiente: ??? Sobredosis que puede conducir a la muerte ??? P??rdida de parra trabajo, parra hogar, parra rocio ??? Lesiones accidentales a usted u otras personas mientras se encuentra bajo la influencia de la droga (en un autom??david o en parra casa) ??? Arresto, convicci??n y sentencia a ir a la c??rcel por posesi??nde elda sustancia ilegal o por manejar bajo parra influencia Desde el punto de vista m??dico la coca??na puede afectar todos los ??rganos del cuerpo. Puede causar: ??? Dolor de pecho, arritmia (ritmo card??aco anormal), ataque card??aco ??? Dolor de hunter oumar, convulsiones, p??rdida del conocimiento,??ataque cerebral ??? Ansiedad, psicosis, confusi??n ??? Da??o nasal (por aspirar la droga) ??? Bronquitis cr??tenzin (de fumar), falta de aire ??? Infecci??n del VIH, hepatitis B o C, infecci??n del coraz??n (por el??uso de jeringas intravenosas) ??? Insuficiencia renal Cuidado En [place]: ??? Admita que tiene un problema con la droga. Pida ayuda a parra rocio y amigos ??ntimos. ??? Busque psicoterapia o asesoramiento psicol??gico individual si la depresi??n o la ansiedad le causan problemas. ??? Entre en un alize de autoayuda para le abuso de drogas. ??? Evite a los amigos que consumen droga o le tientan para seguir abusando de la droga. ??? Coma elda dieta balanceada y comience un p rograma de ejercicios regular. Si contin??a usando coca??na intravenosamente, disminuya parra riesgo de transmisi??n de infecci??n: ??? Usando solamente equipo est??ril ??? No usando de nuevo o compartiendo equipo ??? Limpiando la piel antes de inyectarse Seguimiento con parra m??dico o de acuerdo a lo indicado por nuestro personal. Contacte alguno de los recursos de abajo para recibir??ayuda. ??? National [place] on Alcoholism and Drug Dependence??664-352-NVCY www.ncadd.org ??? Narcotics Anonymous??www.na.org ??? National Alcohol and Substance Abuse Information Center (puede informarle sobre los programas de tratamiento para la drogadicci??n en la rochelle donde usjúnior rosario) [phone] www. addictionBetween.com Regrese??Prontamente O Busque??Atenci??n M??dica si algo de lo siguiente ocurre: ??? Dolor de pecho, brazo, arik o de la parte superior de la espalda ??? Falta de aire, mareos, debilidad, p??rdida del conocimiento ??? Agitaci??n, ansiedad, incapacidad para dormir ??? P??rdida de peso inesperada (m??s de 10-15 libras en 3 meses) ??? Alucinaciones, depresi??n severa, deseos de hacerse da??o o hacer da??o a otros ??? Dolor de hunter oumar, convulsi??n; adormecimiento o debilidad en la yelitza, un brazo o elda pierna ??? Hablar arrastrando las palabras, confusi??n, problemas para hablar o??caminar ??? Fiebre de 100.4??F (38??C) o m??s nicole, o brandon le haya indicado parra proveedor de atenci??n m??dica ??? Enrojecimiento, dolor o hinchaz??n en el lugar de la inyecci??n ??? P??rdida o disminuci??n de la visi??n Last Reviewed Date: 2016 ?? [id number] Stellar. Todos los derechos reservados. Esta informaci??n no pretende sustituir la atenci??n m??dica profesional. S??lo parra m??dico puede diagnosticar y tratar un problema de carolyn. ?? Patient Care team information Care Team Personnel Name: Nicci Richmond RN Position: [facility] RN Member Role: Primary Care Nurse Name: Kathy Levin RN Position: [facility] RN Member Role: Primary Care Nurse Name: Yun Gutierrez NP Position: Reference Physician Member Role: PCP Address: Address: [address] [place] [address]- Name: She De La Cruz RN Position: [facility] RN Member Role: Primary Care Nurse Name: Kem Wolf RN Position: [facility] RN Member Role: Primary Care Nurse Name: Shukri Ortega RN Position: [facility] RN Member Role: Primary Care Nurse Name: Caty Francois MD Position: [facility] ED Medicine MD Member Role: Admitting Physician Address: Address: [address] [place] [address]- Name: Merlene Pereira Position: [facility] ED TA [facility] Name: Briseida Rock RN Position: [facility] ED RN W/OE and Tasks Member Role: Patient Care Provider Care Team Related Persons Name: REAL RICHARD Address: [address] [place] [address] Name: GARRETT AYON Address: home [address] [place] [address] Name: GARRETT TERRY Name: GARRETT TERRY Address: [place] [address]
--- OUTSIDE RECORDS SUMMARY | 2024-04-17 07:07 | XMS_ITS | Continuity of Care Document ---
Author Organization [facility] ter Address [address] [place] [address]- Care Team Providers Care Parts Facilitator Name Role Phone Not on Staff, PCP Primary Care Physician Unavail able Encounter [facility] [place] Date(s): 10/16/20 - 10/16/[address] [address]- Discharge Disposition: A-D/C Home Attending Physician: Esvin Bates MD Admitting Physician: Esvin Bates MD Referring Physician: Not on Staff, Referring [...] 3 Refills, Soft Stop, 10/02/20 8:26:00 EST, [facility], Partial fill upon patient request if the prescription is for a schedule II opioid drug., 166, cm, 03/07/19 1:45:00 EDT, Height, 59, kg, ... Start Date: 10/02/20 Status: Ordered Narcan 4 [...] 3 Oxygen Saturation [94-100 %] 99 % (10/16/20 2:22 PM) 94 % (10/16/20 10:06 AM) 95 % (10/16/20 9:29 AM) Pulse Rate [55-90 bpm] 106 bpm *H* (10/16/20 2:22 PM) 118 bpm *H* (10/16/20 10:06 AM) 132 bpm *H* (10/16/20 9:29 AM) Blood Pressure [90-138/55-84 mm Hg] 118/75mm Hg (10/16/20 2:22 PM) 114/69mm Hg (10/16/20 10:06 AM) 183/131mm Hg *H* (10/16/20 9:29 AM) Respiratory Rate [16-30 br/min] 14 br/min *L* (10/16/20 2:22 PM) 16 br/min (10/16/20 10:06 AM) 22 br/min (10/16/20 9:29 AM) Temperature [96.8-100.4 DegF] 97.8 DegF (10/16/20 2:22 PM) 98.4 DegF (10/16/20 10:06 AM) 100.0 DegF (10/16/20 9:29 AM) Mode of Delivery (Oxygen) Room air (10/16/20 2:22 PM) Room air (10/16/20 10:06 AM) Room air (10/16/20 9:29 AM) Blood pressure sites Arm, right (10/16/20 2:22 PM) Arm, left (10/16/20 10:06 AM) Arm, left (10/16/20 9:29 AM) Temperature Route Oral (10/16/20 2:22 PM) Oral (10/16/20 10:06 AM) Axillary (10/16/20 9:29 AM) Social History Social History Type Response Smoking Status Never (less than 100 in lifetime) entered on: 11/14/18 Sex Male
--- OUTSIDE RECORDS SUMMARY | 2024-04-17 07:07 | XMS_ITS | Continuity of Care Document ---
Author Organization [facility] ter Address [address] [place] [address]- Care Team Providers Care Beach Expert Name Role Phone Not on Staff, PCP Primary Care Physician Unavail able Encounter [facility] Date(s): 08/02/19 - 09/15/[address] [address]- [facility] Attending Physician: Brodie Donald Admitting Physician: Brodie Donald Referring Physician: Brodie Donald Allergies, Adverse Reactions, Alerts Substance Reaction Severity Status aspirin Active Problem List Condition Effective Dates Status Health Status Inform ant Asthma(Confirmed) Active Depression(Confirmed) Active DIAMOND (generalized anxiety disorder)(Confirmed) Active Social History Social History Type Response Sex Male
--- OUTSIDE RECORDS SUMMARY | 2024-04-17 07:07 | XMS_ITS | Continuity of Care Document ---
Author Organization [facility] ter Address [address] [place] [address]- Care Team Providers Care Lithographic Proofer Apprentice Name Role Phone Not on Staff, PCP Primary Care Physician Unavail able [place] [facility] [place] 10/02/[place] - 10/02/[address] [address]- [facility] Discharge Disposition: A-D/C Walkout Attending Physician: Not on Staff, Attending MD Admitting Physician: Not on Staff, Admitting MD Referring Physician: Not on Staff, Referring [...] ADS OPPTHS Start Date: 04/05/07 Status: Ordered doxycycline hyclate 100 mg oral capsule 100, mg, 1, capsule, By Mouth, 2 times a day, 14, capsule, 0, 0, 08/08/06 15:21:41, Print INDIRA Number, [facility]S [facility], [id number], Constant Indicator Start Date: 08/08/06 Stop Date: [...] 0 Refills, Maintenance, 09/21/19 14:14:00 EST, Film, [facility]/pharmacy #[id number], 1 film Sublingual Daily,Instr:dissolve under the tongue, [...] [Reference Range]: 1 Oxygen Saturation [94-100 %] 98 % (10/02/19 12:15 AM) Pulse Rate [55-90 bpm] 73 bpm (10/02/19 12:15 AM) Blood Pressure [90-138/55-84 mm Hg] 111/ 66mm Hg (10/02/19 12:15 AM) Respiratory Rate [16-30 br/min] 18 br/mi n (10/02/19 12:15 AM) Temperature [96.8-100.4 DegF] 97.9 DegF (10/02/19 12:15 AM) Mode of Delivery (Oxygen) Room air (10/02/19 12:15 AM) Blood pressure sites Arm, right (10/02/19 12:15 AM) Temperature Route Oral (10/02/19 12:15 AM) Social History Social History Type Response Smoking Status Never (less than 100 in lifetime) entered on: 11/14/18 Sex
--- OUTSIDE RECORDS SUMMARY | 2024-04-17 07:07 | XMS_ITS | Continuity of Care Document ---
Author Organization [facility] ter Address [address] [place] [address]- Care Team Providers Care Burlesque Dancer Name Role Phone Brenda CUNNINGHAM, Yun Primary Care Physician [phone] [place] [facility] Date(s): 10/09/22 - 10/09/[address] [address]- Discharge Disposition: A-D/C AMA Attending Physician: Iliana Gomez MD Admitting Physician: Iliana Gomez MD Referring Physician: Not on Staff, Referring [...] or as directed dissolve under the tongue [id number], # 10 film, 0 Refills, Maintenance, 05/10/22 8:30:00 EDT, [facility] 3, Partial fill upon [...] 1 2 3 Oxygen Saturation [94-100 %] 98 % (10/09/22 4:14 PM) 95 % (10/09/22 2:32 PM) 98 % (10/09/22 12:09 PM) Pulse Rate [55-90 bpm] 100 bpm *H* (10/09/22 4:14 PM) 98 bpm *H* (10/09/22 2:32 PM) 98 bpm *H* (10/09/22 12:09 PM) Blood Pressure [90-138/55-84 mm Hg] 139/110mm Hg *H* (10/09/22 4:14 PM) 108/89mm Hg (10/09/22 2:32 PM) 121/71mm Hg (10/09/22 12:09 PM) Respiratory Rate [16-30 br/min] 18 br/min (10/09/22 4:14 PM) 18 br/min (10/09/22 2:32 PM) 18 br/min (10/09/22 12:09 PM) Temperature [96.8-100.4 DegF] 98.4 DegF (10/09/22 4:14 PM) 97.4 DegF (10/09/22 7:36 AM) 97.4 DegF (10/09/22 7:36 AM) Mode of Delivery (Oxygen) Room air (10/09/22 4:14 PM) Room air (10/09/22 2:32 PM) Room air (10/09/22 12:09 PM) Blood pressure sites Arm, left (10/09/22 4:14 PM) Arm, left (10/09/22 2:32 PM) Arm, left (10/09/22 12:09 PM) Temperature Route Oral (10/09/22 4:14 PM) Oral (10/09/22 7:36 AM) Oral (10/09/22 7:36 AM) Social History Social History Type Response Smoking Status Never (less than 100 in lifetime) entered on: 11/14/18 Sex EKG study * Event Display: ECG 12-Lead Authored Date: Please click on pdf link to open report * Event Display: ECG 12-Lead Authored Date: Ventricular Rate: 76 BPM Atrial Rate: 76 BPM P-R Interval: 132 ms QRS Duration: 80 ms Q-T Interval: 406 ms QTC Calculation(Bazett): 456 ms P [place]: 39 degrees R [place]: 6 degrees T [place]: 13 degrees Normal sinus rhythm with sinus arrhythmia Normal ECG When compared with ECG of 26-MAY-2022 13:02, No significant change was found Confirmed by MONCHO QUINTERO MD ([id number]) on 10/09/2022 4:36:26 PM Wylie[facility] * Tahira BARREL LATHE OPERATOR, Mary Bowen: PERFORM Event Display: Progress Note Hospital Authored Date: [id number] Patient: ??SANDY SPARKS ? Age:??37 Years?Sex:??Male?:??1985?? pt left AMA prior to being admitted by the medicine team with a final dx of vomiting and tachycardia. Patient Care team information Care Team Personnel Name: Nicci Richmond RN Position: [facility] RN Member Role: Primary Care Nurse Name: Kathy Levin RN Position: [facility] RN Member Role: Primary Care Nurse Name: Yun Gutierrez NP Position: Reference Physician Member Role: PCP Address: Address: [address] [place] [address] Name: She De La Cruz RN Position: [facility] RN Member Role: Primary Care Nurse Name: Kem Wolf RN Position: [facility] RN Member Role: Primary Care Nurse Name: Shukri Ortega RN Position: [facility] RN Member Role: Primary Care Nurse Name: Job WORLEY Attending Position: [facility] ED Medicine MD Name: Kimberly Zuniga Position: [facility] Associate Professional Member Role: ED Physician Campus Director Address: Address: [address] [place] [address] Name: Celia Jacinto RN Position: [facility] ED RN W/OE and Tasks Member Role: Patient Care Provider Name: Merlene Pereira Position: [facility] ED TA [facility] Member Role: Folder Inspector Care Team Related Persons Name: REAL RICHARD Address: [address] [place] [address] Name: GARRETT AYON Address: [address] [place] [address] Name: GARRETT TERRY Name: GARRETT TERRY Address: [place] [address]
--- OUTSIDE RECORDS SUMMARY | 2024-04-17 07:07 | XMS_ITS | Continuity of Care Document ---
Author Organization [facility] ter Address [address] [place] [address]- Care Team Providers Care Mail Courier Name Role Phone Not on Staff, PCP Primary Care Physician Unavail able [place] [facility] Date(s): 09/24/19 - 09/24/[address] [address]- [facility] Encounter Diagnosis Altered mental status(Final) - 09/24/19 Discharge Disposition: A-D/C Home Attending Physician: Caty [...] 0, 04/05/07 22:20:42, non-weightbearing, leg contusion, ADS OPPT Start Date: 04/05/07 Status: Ordered doxycycline hyclate 100 mg oral capsule 100, mg, 1, capsule, By Mouth, 2 times a day, 14, capsule, 0, 0, 08/08/06 15:21:41, Print INDIRA Number, [facility], [id number], Constant Indicator Start Date: 08/08/06 Stop Date: [...] 0 Refills, Maintenance, 09/21/19 14:14:00 EST, Film, [facility]/pharmacy #[id number], 1 film Sublingual Daily,Instr:dissolve under the tongue, [...] recent to oldest [Reference Range]: 1 2 Oxygen Saturation [94-100 %] 100 % (09/24/19 6:10 PM) 96 % (09/24/19 2:59 PM) Pulse Rate [55-90 bpm] 80 bpm (09/24/19 6:10 PM) 89 bpm (09/24/19 2:59 PM) Blood Pressure [90-138/55-84 mm Hg] 128/ 67mm Hg (09/24/19 6:10 PM) 98/68mm Hg (09/24/19 2:59 PM) Respiratory Rate [16-30 br/min] 18 br/mi n (09/24/19 6:10 PM) 16 br/min (09/24/19 2:59 PM) Temperature [96.8-100.4 DegF] 98.0 DegF (09/24/19 6:10 PM) 98.0 DegF (09/24/19 2:59 PM) Mode of Delivery (Oxygen) Room air (09/24/19 6:10 PM) Room air (09/24/19 2:59 PM) Blood pressure sites Arm, left (09/24/19 6:10 PM) Arm, left (09/24/19 2:59 PM) Temperature Route Oral (09/24/19 6:10 PM) Oral (09/24/19 2:59 PM) Social History Social History Type Response Smoking Status Never (less than 100 in lifetime) entered on: 11/14/18 Sex
--- OUTSIDE RECORDS SUMMARY | 2024-04-17 07:07 | XMS_ITS | Continuity of Care Document ---
Author Organization [facility] Address [address] [place] [address]- Care Team Providers Care Artificial Stone Applicator Name Role Phone Yue CAGE, Mckay Navarro Primary Care Physician [place] [facility] [place] Date(s): 11/20/19 - 11/21/[address] [address]- [facility] Discharge Disposition: A-D/C Home Attending Physician: Eloina Jimenez MD Admitting Physician: Eloina Jimenez MD Referring Physician: Not on Staff, Referring [...] 0, 04/05/07 22:20:42, non-weightbearing, leg contusion, ADS [facility] Start Date: 04/05/07 Status: Ordered doxycycline hyclate 100 mg oral capsule 100, mg, 1, capsule, By Mouth, 2 times a day, 14, capsule, 0, 0, 08/08/06 15:21:41, Print INDIRA Number, [facility], [id number], Constant Indicator Start Date: 08/08/06 Stop Date: [...] 0 Refills, Maintenance, 09/21/19 14:14:00 EST, Film, [facility]/pharmacy #[id number], 1 film Sublingual Daily,Instr:dissolve under the tongue, [...] 3 Oxygen Saturation [94-100 %] 99 % (11/21/19 9:53 AM) 100 % (11/21/19 12:43 AM) 99 % (11/20/19 10:51 PM) Pulse Rate [55-90 bpm] 74 bpm (11/21/19 9:53 AM) 93 bpm *H* (11/21/19 12:43 AM) 76 bpm (11/20/19 10:51 PM) Blood Pressure [90-138/55-84 mm Hg] 105/80mm Hg (11/21/19 9:53 AM) 119/81mm Hg (11/21/19 12:43 AM) 131/73mm Hg (11/20/19 10:51 PM) Respiratory Rate [16-30 br/min] 18 br/min (11/21/19 9:53 AM) 14 br/min *L* (11/21/19 12:43 AM) 18 br/min (11/20/19 10:51 PM) Temperature [96.8-100.4 DegF] 98.0 DegF (11/21/19 9:53 AM) 97.9 DegF (11/21/19 12:43 AM) 98.2 DegF (11/20/19 7:41 PM) Mode of Delivery (Oxygen) Room air (11/21/19 9:53 AM) Room air (11/21/19 12:43 AM) Room air (11/20/19 10:51 PM) Blood pressure sites Arm, right (11/21/19 9:53 AM) Arm, left (11/21/19 12:43 AM) Arm, left (11/20/19 10:51 PM) Temperature Route Oral (11/21/19 9:53 AM) Oral (11/21/19 12:43 AM) Oral (11/20/19 7:41 PM) Social History Social History Type Response Smoking Status Never (less than 100 in lifetime) entered on: 11/14/18 Sex
--- OUTSIDE RECORDS SUMMARY | 2024-04-17 07:07 | XMS_ITS | Continuity of Care Document ---
Author Organization [facility] Address [address] [place] [address]- Care Team Providers Care Entry Level Finance Name Role Phone Brenda CUNNINGHAM, Yun Primary Care Physician [place] [facility] Date(s): 11/12/20 - 02/07/21 [facility] [address] [place] [address] Attending Physician: Trevon Ashraf MD Admitting Physician: Trevon Ashraf MD Referring Physician: Yun Gutierrez NP Allergies, Adverse Reactions, Alerts Substance Reaction Severity [...] 3 Refills, Soft Stop, 10/02/20 8:26:00 EST, [facility], Partial fill upon patient request if the prescription is for a schedule II opioid drug., 166, cm, 03/07/19 1:45:00 EDT, Height, 59, kg, 03/23/... Start Date: 10/02/20 Status: Ordered Narcan 4 mg/0.1 mL nasal spray See Instructions, 4 mg Once, # 2 each, 2 Refills, Soft Stop, 11/18/20 7:06:00 EDT, [facility], Partial fill upon patient request [...] 3 times a day, 0 Refills, Maintenance, 04/09/20 13:41:00 EDT Start Date: 12/05/19 Stop Date: 01/04/20 Status: Ordered Social History Social History Type Response Smoking Status Never (less than 100 in lifetime) entered on: 11/14/18 Sex Male
--- OUTSIDE RECORDS SUMMARY | 2024-04-17 07:07 | XMS_ITS | Continuity of Care Document ---
Author Organization [facility] ter Address [address] [place] [address]- Care Team Providers Care Can Tester Name Role Phone Brenda CUNNINGHAM, Yun Primary Care Physician Encounter [facility] [place] Date(s): 08/30/21 - 08/30/[address] [address]- Encounter Diagnosis COVID-19(Final) - 08/30/21 Opioid use disorder(Final) - 08/30/21 Discharge Disposition: A-D/C Home Attending Physician: Kingston Logan MD Admitting Physician: [...] 3 Refills, Soft Stop, 10/02/20 8:26:00 EST, [facility], Partial fill upon patient request if the prescription is for a schedule II opioid drug., 166, cm, 03/07/19 1:45:00 EDT, Height, 59, kg, 03/23/... Start Date: 10/02/20 Status: Ordered Narcan 4 mg/0.1 mL nasal spray See Instructions, 4 mg Once, # 2 each, 2 Refills, Soft Stop, 11/18/20 7:06:00 EDT, [facility], Partial fill upon patient request [...] Date: 12/05/19 Stop Date: 01/02/20 Status: Ordered Suboxone 8 mg-2 mg sublingual film 2 film, Sublingual, Daily, 2 films dissolved under the tongue daily for 7 days. ED Providers INDIRA-X: Providers, Click Modify Details and Type INDIRA-X here , # 14 film, 0 Refills, Maintenance, 08/30/21 14:31:00 [facility], Partial fill upo... Start Date: 08/30/21 Stop Date: 09/06/21 Status: Ordered Tylenol 325 mg oral tablet [...] 2 Oxygen Saturation [94-100 %] 100 % (08/30/21 11:27 AM) 99 % (08/30/21 6:06 AM) Pulse Rate [55-90 bpm] 93 bpm *H* (08/30/21 11:27 AM) 67 bpm (08/30/21 6:06 AM) Blood Pressure [90-138/55-84 mm Hg] 128/ 90mm Hg (08/30/21 11:27 AM) 143/69mm Hg *H* (08/30/21 6:06 AM) Respiratory Rate [16-30 br/min] 22 br/mi n (08/30/21 11:27 AM) 16 br/min (08/30/21 6:06 AM) Temperature [96.8-100.4 DegF] 97.8 DegF (08/30/21 11:27 AM) 97.7 DegF (08/30/21 6:06 AM) Mode of Delivery (Oxygen) Room air (08/30/21 11:27 AM) Room air (08/30/21 6:06 AM) Blood pressure sites Arm, right (08/30/21 11:27 AM) Temperature Route Oral (08/30/21 11:27 AM) Social History Social History Type Response Smoking Status Never (less than 100 in lifetime) entered on: 11/14/18 Sex Male
--- OUTSIDE RECORDS SUMMARY | 2024-04-17 07:07 | XMS_ITS | Continuity of Care Document ---
Author Organization [facility] ter Address [address] [place] [address]- Care Team Providers Care Certified Physician'S Assistant Name Role Phone Yun Gutierrez NP Primary Care Physician [phone] [place] [facility] [place] 11/18/[address] [address]- Encounter Diagnosis Seizure(Final) - 11/18/20 Altered mental status(Final) - 11/18/20 Agitation(Final) - 11/18/20 Polysubstance abuse(Final) - 11/18/20 Polysubstance abuse(Final) - 11/18/20 Altered mental status(Final) - 11/18/20 Agitation(Final) - 11/18/20 Seizure(Final) - 11/18/20 Discharge Disposition: A-D/C Home Attending Physician: Travis Villa DO Admitting Physician: Travis Villa DO Referring Physician: Not on Staff, Referring [...] 3 Refills, Soft Stop, 10/02/20 8:26:00 EST, [facility], Partial fill upon patient request if the prescription is for a schedule II opioid drug., 166, cm, 03/07/19 1:45:00 EDT, Height, 59, kg, 03/23/... Start Date: 10/02/20 Status: Ordered Narcan 4 mg/0.1 mL nasal spray See Instructions, 4 mg Once, # 2 each, 2 Refills, Soft Stop, 11/18/20 7:06:00 EDT, [facility], Partial fill upon patient request [...] 3 Oxygen Saturation [94-100 %] 100 % (11/18/20 8:09 AM) 97 % (11/18/20 5:35 AM) 98 % (11/18/20 3:17 AM) Pulse Rate [55-90 bpm] 82 bpm (11/18/20 8:09 AM) 74 bpm (11/18/20 5:35 AM) 86 bpm (11/18/20 3:17 AM) Blood Pressure [90-138/55-84 mm Hg] 110/80mm Hg (11/18/20 8:09 AM) 105/57mm Hg (11/18/20 5:35 AM) 107/50mm Hg (11/18/20 3:17 AM) Respiratory Rate [16-30 br/min] 18 br/min (11/18/20 8:09 AM) 14 br/min *L* (11/18/20 5:35 AM) 17 br/min (11/18/20 3:17 AM) Temperature [96.8-100.4 DegF] 98.5 DegF (11/18/20 8:09 AM) 97.9 DegF (11/18/20 1:02 AM) 97.6 DegF (11/17/20 11:43 PM) Mode of Delivery (Oxygen) Room air (11/18/20 8:09 AM) Room air (11/18/20 5:35 AM) Room air (11/18/20 3:17 AM) Blood pressure sites Arm, right (11/17/20 11:43 PM) Arm, right (11/17/20 9:22 PM) Arm, right (11/17/20 8:51 PM) Temperature Route Oral (11/18/20 8:09 AM) Oral (11/18/20 1:02 AM) Oral (11/17/20 11:43 PM) Social History Social History Type Response Smoking Status Never (less than 100 in lifetime) entered on: 11/14/18 Sex Male
--- OUTSIDE RECORDS SUMMARY | 2024-04-17 07:07 | XMS_ITS | Continuity of Care Document ---
Author Organization [facility] ter Address [address] [place] [address]- Care Team Providers Care Cementer Hand Name Role Phone Not on Staff, PCP Primary Care Physician Unavail able [place] [facility] [place](s[place] 10/01/20 - 10/02/[address] [address]- Encounter Diagnosis Altered mental status(Final) - 10/01/20 Agitation(Final) - 10/01/20 Discharge Disposition: A-D/C Home Attending Physician: Akash Rivas DO Admitting Physician: Akash Rivas DO Referring Physician: Not on Staff, Referring [...] 3 Refills, Soft Stop, 10/02/20 8:26:00 EST, [facility], Partial fill upon patient [...] Date: 12/05/19 Stop Date: 01/04/20 Status: Ordered Results Radiology Reports * Exam Date Time Procedure Performing Provider Status 10/01/20 3:28 PM Finger 4th Right Hand Omega Roy; Auth (Verified) Notes: (Finger 4th Right Hand) Reason For Exam: with Pain;Trauma RESULT: Finger 4th Right Hand Finger 4th Right Hand, 3 views INDICATION: Pain after trauma. COMPARISON: 04/15/2012. FINDINGS: No fractures or bone lesions. No significant arthritic changes. Normal configuration of carpal bones. Normal soft tissues. IMPRESSION: No acute abnormality. I have personally reviewed the images and I agree with this report. WSN: [id number] Ordering Physician: Oralia James Dictated By: Rufus[Radiology] Andrew CAGE Dictated Date/Time: 10/01/20 3:51 pm Reviewed By: Celia Livingston MD Signed By: Celia Livingston MD Signed Date/Time: 10/01/20 3:56 pm Transcribed By: CONNER Transcribed Date/Time: 10/01/20 3:33 pm Vital Signs Most recent to oldest [Reference Range]: 1 2 3 Oxygen Saturation [94-100 %] 100 % (10/02/20 11:38 AM) 98 % (10/02/20 5:12 AM) 98 % (10/02/20 3:55 AM) Pulse Rate [55-90 bpm] 97 bpm *H* (10/02/20 11:38 AM) 91 bpm *H* (10/02/20 5:12 AM) 100 bpm *H* (10/02/20 3:55 AM) Blood Pressure [90-138/55-84 mm Hg] 139/91mm Hg *H* (10/02/20 11:38 AM) 124/72mm Hg (10/02/20 5:12 AM) 126/71mm Hg (10/02/20 3:55 AM) Respiratory Rate [16-30 br/min] 18 br/min (10/02/20 11:38 AM) 19 br/min (10/02/20 5:12 AM) 21 br/min (10/02/20 3:55 AM) Temperature [96.8-100.4 DegF] 98.8 DegF (10/02/20 5:12 AM) 98.2 DegF (10/01/20 10:00 PM) 97.4 DegF (10/01/20 6:01 PM) Liters per Minute 2 L/min (10/01/20 10:00 PM) 2 L/min (10/01/20 8:00 PM) 2 L/min (10/01/20 6:01 PM) Mode of Delivery (Oxygen) Room air (10/02/20 11:38 AM) Room air (10/02/20 5:12 AM) Room air (10/02/20 3:55 AM) Blood pressure sites Arm, left (10/02/20 11:38 AM) Arm, left (10/02/20 5:12 AM) Arm, left (10/02/20 3:55 AM) Temperature Route Oral (10/02/20 5:12 AM) Oral (10/01/20 10:00 PM) Axillary (10/01/20 6:01 PM) Social History Social History Type Response Smoking Status Never (less than 100 in lifetime) entered on: 11/14/18 Sex Male
--- OUTSIDE RECORDS SUMMARY | 2024-04-17 07:07 | XMS_ITS | Continuity of Care Document ---
Author Organization [facility] ter Address [address] [place] [address]- Care Team Providers Care Entertainment Dancer Name Role Phone Brenda CUNNINGHAM, Yun Primary Care Physician [place] [facility] [place] 11/16/20 - 11/17/[address] [address]- Encounter Diagnosis Cocaine use(Final) - 11/16/20 Discharge Disposition: A-D/C Home Attending Physician: Mykel Schwab MD Admitting Physician: Mykel Schwab MD Referring Physician: Not on Staff, Referring [...] 3 Refills, Soft Stop, 10/02/20 8:26:00 EST, [facility], Partial fill upon patient [...] 3 Oxygen Saturation [94-100 %] 99 % (11/17/20 10:23 AM) 99 % (11/17/20 5:49 AM) 98 % (11/16/20 9:53 PM) Pulse Rate [55-90 bpm] 75 bpm (11/17/20 10:23 AM) 82 bpm (11/17/20 5:49 AM) 71 bpm (11/16/20 9:53 PM) Blood Pressure [90-138/55-84 mm Hg] 120/78mm Hg (11/17/20 10:23 AM) 124/84mm Hg (11/17/20 5:49 AM) 127/83mm Hg (11/16/20 9:53 PM) Respiratory Rate [16-30 br/min] 18 br/min (11/17/20 10:23 AM) 17 br/min (11/17/20 5:49 AM) 16 br/min (11/16/20 9:53 PM) Temperature [96.8-100.4 DegF] 98.2 DegF (11/17/20 5:49 AM) 97.6 DegF (11/16/20 9:53 PM) Mode of Delivery (Oxygen) Room air (11/17/20 10:23 AM) Room air (11/17/20 5:49 AM) Room air (11/16/20 9:53 PM) Blood pressure sites Arm, left (11/17/20 10:23 AM) Arm, left (11/17/20 5:49 AM) Arm, right (11/16/20 9:53 PM) Temperature Route Oral (11/17/20 5:49 AM) Oral (11/16/20 9:53 PM) Social History Social History Type Response Smoking Status Never (less than 100 in lifetime) entered on: 11/14/18 Sex Male
--- OUTSIDE RECORDS SUMMARY | 2024-04-17 07:07 | XMS_ITS | Continuity of Care Document ---
Author Organization [facility] Address [address] [place] [address]- Care Team Providers Care Cooperative Education Director Name Role Phone Brenda CUNNINGHAM, Yun Primary Care Physician [phone] Encounter [facility] [place] Date(s): 05/26/22 - 05/29/22 [facility] [address] [place] [id number] Encounter Diagnosis Polysubstance abuse(Final) - 05/26/22 Alcohol abuse with withdrawal(Final) - 05/26/22 Altered mental status(Final) - 05/26/22 Laceration of arm(Final) - 05/26/22 Discharge Disposition: A-D/C Home Attending Physician: Daniel CAGE, Bull Thacker Admitting Physician: Shefali CAGE, Hilario Referring Physician: Not on Staff, Referring MD [...] oral capsule 300 mg, Capsule, By Mouth, 05/29/22 9:00:00 EDT Start Date: 05/29/22 Stop Date: 05/29/22 Status: Completed gabapentin 300 mg oral capsule [...] oral capsule 1 mg, Capsule, By Mouth, 05/29/22 9:00:00 EDT Start Date: 05/29/22 Stop Date: 05/29/22 Status: Completed prazosin 1 mg oral capsule [...] or as directed dissolve under the tongue [id number], # 10 film, 0 Refills, Maintenance, 05/10/22 8:30:00 EDT, [facility], Partial fill upon patient request if [...] I Confirmed Active Opiate dependence Confirmed Active Results Orders for Microbiology Reports Name Date Blood Culture 05/26/22 Blood Culture #2 05/26/22 Microbiology Reports TEST:Blood Culture STATUS:Unauthenticated BODY SITE: SOURCE:Blood COLLECTED DATE/TIME:05/26/22 9:31 PM Blood Culture SPECIMEN DESCRIPTION : BLOOD RT HAND SPECIAL REQUESTS : NONE CULTURE : NO GROWTH 3 DAYS REPORT STATUS : PRELIMINARY REPORT TEST:Blood Culture, Second Order STATUS:Unauthenticated BODY SITE: SOURCE:Blood COLLECTED DATE/TIME:05/26/22 9:30 PM Blood Culture, Second Order SPECIMEN DESCRIPTION : BLOOD LT HAND SPECIAL REQUESTS : NONE CULTURE : NO GROWTH 3 DAYS REPORT STATUS : PRELIMINARY REPORT Radiology Reports * Exam Date Time Procedure Performing Provider Status 05/27/22 11:12 PM Chest Portable Ghazal Valdovinos ; Auth (Verified) Notes: (Chest Portable) Reason For Exam: Fever/Increased White Count RESULT: Chest Portable Chest Portable Reason: Fever Increased White Count; Clinical Question(s): Pneumonia; COMPARISON: 01/25/2022. FINDINGS: LINES AND TUBES: None. LUNGS AND PLEURA: Low lung volumes. Clear lungs. Normal pulmonary vascularity. No pleural effusion. No pneumothorax. HEART, MEDIASTINUM AND CORY: Heart is normal in size. Normal mediastinal and hilar contour. BONES AND SOFT TISSUES: No acute abnormality. IMPRESSION: No acute abnormality. WSN: [id number] Ordering Physician: Bull Sanchez Dictated By: Katiuska Bradley MD Dictated Date/Time: 05/27/22 11:17 p Reviewed By: Katiuska Bradley MD Signed By: Katiuska Bradley MD Signed Date/Time: 05/27/22 11:17 pm Transcribed By: CONNER Transcribed Date/Time: 05/27/22 11:15 pm Vital Signs Most recent to oldest [Reference Range]: 1 2 3 Weight 76.4 kg (05/27/22 6:17 PM) Oxygen Saturation [94-100 %] 100 % (05/29/22 11:42 AM) 98 % (05/29/22 6:48 AM) 100 % (05/28/22 10:56 PM) Pulse Rate [55-90 bpm] 66 bpm (05/29/22 11:42 AM) 66 bpm (05/29/22 6:48 AM) 80 bpm (05/28/22 10:56 PM) Blood Pressure [90-138/55-84 mm Hg] 119/82mm Hg (05/29/22 11:42 AM) 119/74mm Hg (05/29/22 9:35 AM) 131/82mm Hg (05/29/22 6:48 AM) Respiratory Rate [16-30 br/min] 16 br/min (05/29/22 11:42 AM) 14 br/min *L* (05/29/22 10:35 AM) 14 br/min *L* (05/29/22 9:35 AM) Temperature [96.8-100.4 DegF] 98.1 DegF (05/29/22 11:42 AM) 98.5 DegF (05/29/22 6:48 AM) 100.1 DegF (05/28/22 10:56 PM) Mode of Delivery (Oxygen) Room air (05/29/22 11:42 AM) Room air (05/29/22 6:48 AM) Room air (05/28/22 10:56 PM) Blood pressure sites Arm, left (05/29/22 11:42 AM) Arm, left (05/29/22 6:48 AM) Arm, right (05/28/22 10:56 PM) Temperature Route Oral (05/29/22 11:42 AM) Axillary (05/29/22 6:48 AM) Axillary (05/28/22 10:56 PM) Weight Obtained Via Bed scale (05/27/22 6:17 PM) Social History Social History Type Response Smoking Status Never (less than 100 in lifetime) entered on: 11/14/18 Sex Portable XR Chest Views * BHSPowerscribe , CIS S: TRANSCRIBE Katiuska Bradley MD: VERIFY Event Display: Result: Authored Date: [id number] Chest Portable Reason: Fever Increased White Count; Clinical Question(s): Pneumonia; COMPARISON: 01/25/2022. FINDINGS: LINES AND TUBES: None. LUNGS AND PLEURA: Low lung volumes. Clear lungs. Normal pulmonary vascularity. No pleural effusion. No pneumothorax. HEART, MEDIASTINUM AND CORY: Heart is normal in size. Normal mediastinal and hilar contour. BONES AND SOFT TISSUES: No acute abnormality. IMPRESSION: No acute abnormality. WSN: [id number] Ordering Physician: Bull Sanchez Dictated By: Katiuska Bradley MD Dictated Date/Time: 05/27/22 11:17 p Reviewed By: Katiuska Bradley MD Signed By: Katiuska Bradley MD Signed Date/Time: 05/27/22 11:17 pm Transcribed By: CONNER Transcribed Date/Time: 05/27/22 11:15 pm Patient Care team information Personnel Name: Yun Gutierrez NP Address: Address: [address] [place] [address]
--- OUTSIDE RECORDS SUMMARY | 2024-04-17 07:07 | XMS_ITS | Continuity of Care Document ---
Author Organization [facility] ter Address [address] [place] [address]- Care Team Providers Care Acid Remover Name Role Phone Brenda CUNNINGHAM, Yun Primary Care Physician [phone] Encounter [facility] Date(s): 01/25/22 - 01/28/[address] [address] Encounter Diagnosis Laceration of left foot(Final) - 01/25/22 Discharge Disposition: A-D/C Usp, Snf, or Long Term Fac Attending Physician: Joanie Barnett DO Admitting Physician: Chuy CAGE, Gutierrez Duncan Referring Physician: Not on Staff, Referring MD [...] SARS-CoV-2 (COVID-19) mRNA-1273 vaccine 02/11/21 R ecorded Hepatitis A Adult [...] opioid drug. Start Date: 01/28/22 Status: Ordered folic acid 1 mg oral tablet 1 mg, 1, tablet, By Mouth, Daily, Refills 0, Maintenance, 01/28/22 11:53:00 EDT, Partial fill upon patient request if the prescription is for a schedule II opioid drug. Start Date: 01/28/22 Status: Ordered multivitamin Vitamin B Complex oral [...] opioid drug. Start Date: 09/30/21 Status: Ordered thiamine 100 mg oral tablet 100 mg, 1, tablet, By Mouth, 2 times a day, Refills 0, Maintenance, 01/28/22 11:53:00 EDT, Partial fill upon patient request if the prescription is for a schedule II opioid drug. Start Date: 01/28/22 Status: Ordered Tylenol 325 mg oral tablet [...] Obese class I(Confirmed) Active Opiate dependence(Confirmed) Active Results Radiology Reports * Exam Date Time Procedure Performing Provider Status 01/25/22 4:35 PM Chest Portable Ami Wang; Auth (Verified) Notes: (Chest Portable) Reason For Exam: Shortness of Breath RESULT: Chest Portable Chest Portable HX OF PRESENT ILLNESS: PCP use with small foot wound COMPARISON: 12/03/2019. FINDINGS: LINES AND TUBES: None. LUNGS AND PLEURA: Low lung volumes with mild basilar atelectasis. Prominent central pulmonary vasculature and mild bilateral interstitial infiltrates. No pleural effusion. No pneumothorax. HEART, MEDIASTINUM AND CORY: Heart is at the upper limits of normal for size. Normal upper mediastinal and hilar contour. BONES AND SOFT TISSUES: No acute abnormality. IMPRESSION: Bilateral low lung volumes with mild bilateral interstitial infiltrates which is nonspecific and could represent atelectasis, edema or infiltrate. I have personally reviewed the images and I agree with this report. WSN: [id number] Ordering Physician: Jennyfer Yancey Dictated By: Gutierrez Medina MD Dictated Date/Time: 01/25/22 4:47 pm Reviewed By: Chandrakant Grover MD, V Signed By: Chandrakant Grover MD, V Signed Date/Time: 01/25/22 4:52 pm Transcribed By: CONNER Transcribed Date/Time: 01/25/22 4:45 pm * Exam Date Time Procedure Performing Provider Status 01/24/22 10:49 PM Foot Min 3 Views Left Praveen Bahnedagarrick ; Auth (Verified) Notes: (Foot Min 3 Views Left) Reason For Exam: with Pain;Trauma RESULT: Foot Min 3 Views Left Foot Min 3 Views Left CLINICAL INDICATION: Hx of Present Illness: PCP use with small foot wound; Reason: Trauma; with Pain; Clinical Question(s): Fracture COMPARISONS: None TECHNIQUE: AP, lateral and oblique views of the left foot were obtained. FINDINGS: There is a soft tissue wound along the plantar aspect of the foot with associated soft tissue swelling. No embedded foreign body. There is no fracture or dislocation. MTP and IP joint spaces are maintained. The Lisfranc joint space is normally aligned. No retained foreign body. Hindfoot midfoot alignment is normal. IMPRESSION: There is a soft tissue wound along the plantar aspect of the foot with associated soft tissue swelling. No embedded foreign body. No fracture or dislocation. No x-ray evidence for osteomyelitis. WSN: [id number] Ordering Physician: Galina Saldana Dictated By: Rickie Mitchell MD Dictated Date/Time: 01/24/22 11:25 p Reviewed By: Rickie Mitchell MD Signed By: Rickie Mitchell MD Signed Date/Time: 01/24/22 11:25 pm Transcribed By: CONNER Transcribed Date/Time: 01/24/22 11:15 pm Vital Signs Most recent to oldest [Reference Range]: 1 2 3 Oxygen Saturation [94-100 %] 93 % *L* (01/28/22 4:43 AM) 100 % (01/27/22 8:24 PM) 98 % (01/27/22 2:00 PM) Pulse Rate [55-90 bpm] 65 bpm (01/28/22 4:43 AM) 78 bpm (01/27/22 8:24 PM) 80 bpm (01/27/22 2:00 PM) Blood Pressure [90-138/55-84 mm Hg] 101/52mm Hg (01/28/22 4:43 AM) 143/78mm Hg *H* (01/27/22 8:24 PM) 125/60mm Hg (01/27/22 2:00 PM) Respiratory Rate [16-30 br/min] 18 br/min (01/28/22 4:43 AM) 18 br/min (01/27/22 8:24 PM) 18 br/min (01/27/22 2:00 PM) Temperature [96.8-100.4 DegF] 97.3 DegF (01/28/22 4:43 AM) 98.4 DegF (01/27/22 8:24 PM) 98.5 DegF (01/27/22 2:00 PM) Liters per Minute 2 L/min (01/26/22 5:35 PM) 2 L/min (01/26/22 5:21 PM) 3 L/min (01/25/22 1:53 AM) Mode of Delivery (Oxygen) Room air (01/28/22 4:43 AM) Room air (01/27/22 8:24 PM) Room air (01/27/22 10:00 AM) Blood pressure sites Leg, left (01/28/22 4:43 AM) Arm, right (01/27/22 8:24 PM) Arm, left (01/27/22 2:00 PM) Temperature Route Axillary (01/28/22 4:43 AM) Oral (01/27/22 8:24 PM) Oral (01/27/22 2:00 PM) Social History Social History Type Response Smoking Status Never (less than 100 in lifetime) entered on: 11/14/18 Sex Male
--- OUTSIDE RECORDS SUMMARY | 2024-04-17 07:07 | XMS_ITS | Continuity of Care Document ---
Author Organization [facility] ter Address [address] [place] [address]- Care Team Providers Care Chargemaster Analyst Name Role Phone Yun Gutierrez NP Primary Care Physician [phone] [place] [facility] [place] 04/09/21 - 04/09/[address] [address]- Discharge Disposition: A-D/C Walkout Attending Physician: Not [...] 3 Refills, Soft Stop, 10/02/20 8:26:00 EST, [facility], Partial fill upon patient request if the prescription is for a schedule II opioid drug., 166, cm, 03/07/19 1:45:00 EDT, Height, 59, kg, 03/23/... Start Date: 10/02/20 Status: Ordered Narcan 4 mg/0.1 mL nasal spray See Instructions, 4 mg Once, # 2 each, 2 Refills, Soft Stop, 11/18/20 7:06:00 EDT, [facility], Partial fill upon patient request [...] [Reference Range]: 1 Oxygen Saturation [94-100 %] 96 % (04/09/21 3:40 PM) Pulse Rate [55-90 bpm] 69 bpm (04/09/21 3:40 PM) Blood Pressure [90-138/55-84 mm Hg] 94/5 3mm Hg (04/09/21 3:40 PM) Respiratory Rate [16-30 br/min] 16 br/mi n (04/09/21 3:40 PM) Temperature [96.8-100.4 DegF] 99.1 DegF (04/09/21 3:40 PM) Mode of Delivery (Oxygen) Room air (04/09/21 3:40 PM) Blood pressure sites Arm, right (04/09/21 3:40 PM) Temperature Route Oral (04/09/21 3:40 PM) Social History Social History Type Response Smoking Status Never (less than 100 in lifetime) entered on: 11/14/18 Sex Male
--- OUTSIDE RECORDS SUMMARY | 2024-04-17 07:07 | XMS_ITS | Continuity of Care Document ---
Author Organization [facility] ter Address [address] [place] [address]- Care Team Providers Care Cardiovascular Disease Specialist Name Role Phone Not on Staff, PCP Primary Care Physician Unavail able [place] [facility] [place]05[place] - 03/06/[address] [address] [facility] Encounter Diagnosis Marijuana intoxication(Final) - 03/06/20 Discharge Disposition: A-D/C Home Attending Physician: Austyn Justice MD Admitting Physician: Austyn Justice MD Referring Physician: Not on Staff, Referring [...] 1 Oxygen Saturation [94-100 %] 98 % (03/06/20 12:15 AM) Pulse Rate [55-90 bpm] 94 bpm *H* (03/06/20 12:15 AM) Blood Pressure [90-138/55-84 mm Hg] 116/ 35mm Hg (03/06/20 12:15 AM) Respiratory Rate [16-30 br/min] 18 br/mi n (03/06/20 12:15 AM) Temperature [96.8-100.4 DegF] 99.3 DegF (03/06/20 12:15 AM) Mode of Delivery (Oxygen) Room air (03/06/20 12:15 AM) Temperature Route Oral (03/06/20 12:15 AM) Social History Social History Type Response Smoking Status Never (less than 100 in lifetime) entered on: 3/20/19 Sex
--- OUTSIDE RECORDS SUMMARY | 2024-04-17 07:07 | XMS_ITS | Continuity of Care Document ---
Author Organization [facility] Address [address] [place] [address]- Care Team Providers Care Plane Runner Name Role Phone Yun Gutierrez NP Primary Care Physician Encounter [facility] [place] Date(s): 01/08/21 - 02/07/21 [facility] [address] [place] [address] Attending Physician: Catherine Montilla Admitting Physician: AdmtrCatherine Referring Physician: Admtr, Catherine Allergies, Adverse Reactions, Alerts Substance Reaction Severity [...] 3 Refills, Soft Stop, 10/02/20 8:26:00 EST, [facility], Partial fill upon patient request if the prescription is for a schedule II opioid drug., 166, cm, 03/07/19 1:45:00 EDT, Height, 59, kg, 03/23/... Start Date: 10/02/20 Status: Ordered Narcan 4 mg/0.1 mL nasal spray See Instructions, 4 mg Once, # 2 each, 2 Refills, Soft Stop, 11/18/20 7:06:00 EDT, [facility], Partial fill upon patient request [...]
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
--- OUTSIDE RECORDS SUMMARY | 2024-04-17 07:07 | XMS_ITS | Continuity of Care Document ---
Author Organization [facility] ter Address [address] [place] [address]- Care Team Providers Care Promotion Writer Name Role Phone Yun Gutierrez NP Primary Care Physician Encounter [facility] Date(s): 02/13/22 - 03/25/[address] [address] Attending Physician: Leatha Marcus NP Admitting Physician: Leatha Marcus NP Referring Physician: Leatha Marcus NP Allergies, Adverse Reactions, Alerts Substance Reaction Severity Status aspirin Active Immunizations Given and Recorded Vaccine Date Status Refusal Reason tetanus/diphtheria/pertussis, acel(Tdap) 1 01/25/22 Given tetanus/diphtheria/pertussis, acel(Tdap) 10/01/20 Given tetanus/diphtheria/pertussis, acel(Tdap) 10/03/19 Recorded tetanus/diphtheria/pertussis, acel(Tdap) 04/14/09 Given influenza virus vaccine, inactivated 09/30/21 Give n influenza virus vaccine, inactivated 10/03/19 Trae rded SARS-CoV-2 (COVID-19) mRNA-[id number] vaccine 02/11/21 R ecorded Hepatitis A Adult [...]
--- OUTSIDE RECORDS SUMMARY | 2024-04-17 07:07 | XMS_ITS | Continuity of Care Document ---
Author Organization [facility] Address [address] [place] [address]- Care Team Providers Care Glass Crusher Name Role Phone Brenda CUNNINGHAM, Yun Primary Care Physician [phone] [facility] Date(s): 09/27/21 - 09/30/[address] [address] Discharge Disposition: Disch/Trans to IP Rehab or unit w/in Hos Attending Physician: Sol Thompson DO Admitting Physician: Andriy Wiseman DO Referring Physician: Ami Vee MD Allergies, Adverse Reactions, Alerts Substance Reaction [...] opioid drug. Start Date: 09/30/21 Status: Ordered Senna 8.6 mg oral tablet 17.2 mg, 2, tablet, By Mouth, Daily, hold for diarrhea with plenty of water, # 60 tablet, Refills 0, Tot. Refills 0, Acute, 10/01/21 10:00:00 EST, 09/30/21 12:04:00 EST, Print Requisition, Tablet, Partial fill upon patient request if the prescription... Start Date: 09/30/21 Stop Date: 10/01/21 Status: Ordered Suboxone 8 mg-2 mg sublingual [...] to oldest [Reference Range]: 1 2 3 Height 165 cm (09/30/21 10:00 AM) 165 cm (09/30/21 5:38 AM) 165 cm (09/30/21 12:33 AM) Weight 83.2 kg (09/28/21 1:38 AM) 59 kg (09/27/21 10:40 PM) 59 kg (09/27/21 6:27 PM) Oxygen Saturation [94-100 %] 98 % (09/30/21 10:00 AM) 96 % (09/30/21 5:38 AM) 98 % (09/30/21 12:33 AM) Pulse Rate [55-90 bpm] 85 bpm (09/30/21 10:00 AM) 83 bpm (09/30/21 5:38 AM) 69 bpm (09/30/21 12:33 AM) Body Mass Index [18.5-24.99] 30.56 *>HHI* (09/28/21 1:38 AM) 21.67 (09/27/21 10:40 PM) Blood Pressure [90-138/55-84 mm Hg] 118/80mm Hg (09/30/21 10:00 AM) 120/78mm Hg (09/30/21 5:38 AM) 121/76mm Hg (09/30/21 12:33 AM) Respiratory Rate [16-30 br/min] 20 br/min (09/30/21 10:00 AM) 18 br/min (09/30/21 5:38 AM) 20 br/min (09/30/21 12:33 AM) Temperature [96.8-100.4 DegF] 98.3 DegF (09/30/21 10:00 AM) 98.3 DegF (09/30/21 5:38 AM) 98.3 DegF (09/30/21 12:33 AM) Mode of Delivery (Oxygen) Room air (09/30/21 10:00 AM) Room air (09/30/21 5:38 AM) Room air (09/30/21 12:33 AM) Blood pressure sites Arm, right (09/30/21 10:00 AM) Arm, right (09/30/21 5:38 AM) Arm, right (09/30/21 12:33 AM) Temperature Route Oral (09/30/21 10:00 AM) Oral (09/30/21 5:38 AM) Oral (09/30/21 12:33 AM) Dry Weight 59 kg (09/28/21 1:38 AM) 59 kg (09/27/21 10:40 PM) 59 kg (09/27/21 6:27 PM) Weight Obtained Via Bed scale (09/28/21 1:38 AM) Dry Weight Obtained Via Patient/family s tated (09/28/21 1:38 AM) Social History Social History Type Response Smoking Status Never (less than 100 in lifetime) entered on: 11/14/18 Sex Male
--- OUTSIDE RECORDS SUMMARY | 2024-04-17 07:07 | XMS_ITS | Continuity of Care Document ---
Author Organization [facility] Address [address] [place] [address]- Care Team Providers Care Supervisor Beehive Kiln Name Role Phone Yue CAGE, Mckay Navarro Primary Care Physician Encounter [facility] Date(s): 12/03/19 - 12/03/[address] [address]- [facility] Encounter Diagnosis Rib pain on left side(Final) - 12/03/19 Discharge Disposition: A-D/C Home Attending Physician: Parish Suarez MD Admitting Physician: Parish Suarez MD Referring Physician: Not on Staff, Referring [...] 0, 0, 04/05/07 22:20:42, non-weightbearing, leg contusion, [facility] Start Date: 04/05/07 Status: Ordered doxycycline hyclate 100 mg oral capsule 100, mg, 1, capsule, By Mouth, 2 times a day, 14, capsule, 0, 0, 08/08/06 15:21:41, Print INDIRA Number, [facility], [id number], Constant Indicator Start Date: 08/08/06 Stop Date: [...] 0 Refills, Maintenance, 09/21/19 14:14:00 EST, Film, [facility]/pharmacy #[id number], 1 film Sublingual Daily,Instr:dissolve under the tongue, [...] Date: 04/14/09 Stop Date: 04/21/09 Status: Ordered Results Radiology Reports * Exam Date Time Procedure Performing Provider Status 12/03/19 5:04 AM Chest 2 Views Frontal and Lat Zelda Majano; Auth (Verified) Notes: (Chest 2 Views Frontal and Lat) Reason For Exam: Traumatic Chest Pain;Other: RESULT: Chest 2 Views Frontal and Lat Chest 2 Views Frontal and Lat Reason: Traumatic Chest Pain; Clinical Question(s): Other:; Pneumothorax, Fracture COMPARISON: Multiple priors with the most recent 05/31/2019 FINDINGS: LINES AND TUBES: None. LUNGS AND PLEURA: Clear lungs. Normal pulmonary vascularity. No pleural effusion. No pneumothorax. HEART, MEDIASTINUM AND CORY: Heart is normal in size. Normal mediastinal and hilar contour. BONES AND SOFT TISSUES: No acute abnormality. IMPRESSION: No acute abnormality. I have personally reviewed the images and I agree with this report. WSN: [id number] Ordering Physician: Ana Maria Fitzgerald Dictated By: Gary Degroot DO Dictated Date/Time: 12/03/19 7:31 am Reviewed By: Marcus Correa MD Signed By: Marcus Correa MD Signed Date/Time: 12/03/19 7:36 am Transcribed By: CONNER Transcribed Date/Time: 12/03/19 6:30 am Vital Signs Most recent to oldest [Reference Range]: 1 2 Oxygen Saturation [94-100 %] 97 % (12/03/19 6:13 AM) 95 % (12/03/19 4:24 AM) Pulse Rate [55-90 bpm] 94 bpm *H* (12/03/19 6:13 AM) 102 bpm *H* (12/03/19 4:24 AM) Blood Pressure [90-138/55-84 mm Hg] 138/ 68mm Hg (12/03/19 6:13 AM) 147/86mm Hg *H* (12/03/19 4:24 AM) Respiratory Rate [16-30 br/min] 16 br/mi n (12/03/19 6:13 AM) 10 br/min *L* (12/03/19 4:24 AM) Temperature [96.8-100.4 DegF] 98.4 DegF (12/03/19 6:13 AM) 98.0 DegF (12/03/19 4:24 AM) Mode of Delivery (Oxygen) Room air (12/03/19 6:13 AM) Room air (12/03/19 4:24 AM) Temperature Route Oral (12/03/19 6:13 AM) Oral (12/03/19 4:24 AM) Social History Social History Type Response Smoking Status Never (less than 100 in lifetime) entered on: 11/14/18 Sex
== END 2024-04-14 08:33 | disposition home or self-care (01) ==
PROVIDERS: Emergency Provider Emergency Medicine
DX: R07.89 Other chest pain (principal); R06.02 Shortness of breath; R20.2 Paresthesia of skin; F12.90 Cannabis use, unspecified, uncomplicated; Z79.899 Other long term (current) drug therapy; Z03.818 Encounter for observation for suspected exposure to other biological agents ruled out
CPT/HCPCS: 0241U; 36415; 71046; 80048; 83735; 84484; 85025; 93005; 99285

== ENCOUNTER 2024-06-05 00:58 | Emergency (ER) | payer MEDICAID, SELFPAY ==
[2024-06-05] VITALS (8 sets, daily range): BP systolic 122–158; BP diastolic 74–108; PULSE 105–128; RESP 12–18; TEMP 36.5–37.1; O2SAT 94–97; BMI 30.6
--- NOTE | 2024-06-05 01:06 | ECG_ITS ---
Test Reason : CHEST PAIN Blood Pressure : / mmHG Vent. Rate : 106 BPM Atrial Rate : 106 BPM P-R Int : 128 ms QRS Dur : 080 ms QT Int : 332 ms P-R-T Axes : 051 000 036 degrees QTc Int : 441 ms Sinus tachycardia Right atrial enlargement Septal infarct (cited on or before 14-APR-2024) Abnormal ECG When compared with ECG of 14-APR-2024 06:12, Questionable change in initial forces of Septal leads Referred By: Generic ED Physician Electronically Signed By:JORGE MARSH MD
--- NOTE | 2024-06-05 01:20 | PC.NURSE ---
pt is alert and oriented, skin appropriate for ethnicity, respirations even and unlabored but wheezing on expirations through out all esposito, pt is reporting mid\sternal to left sided chest pain x2 days, pain is constant that radiates to the left arm-intermittent numbness/tingling to the left arm, also reports a cough, sinus tach on the monitor in the low 100's
--- NOTE | 2024-06-05 02:13 | ED_ITS ---
HPI - Chest Pain General Chief Complaint: Chest Pain Stated Complaint: CHEST PAIN Time Seen by Provider: 06/05/24 01:23 Source: patient Mode of arrival: ambulatory Limitations: no limitations History of Present Illness ED Provider: Dr. Trixie Jackson HPI narrative: Patient comes to the emergency room complaining of chest pain. Patient states that he has a chest pain and left arm pain for 2 days. Patient states that he went to [facility] earlier today, treated for asthma exacerbation, given steroids and neb treatment. Patient states that he is still having chest pain. Related Data Home Medications ?Medication ?Instructions ?Recorded ?Confirmed methadone 10 mg/mL oral concentrate 135 mg PO DAILY 10/30/23 10/30/23 Previous Rx's ?Medication ?Instructions ?Recorded clonidine HCl 0.2 mg tablet 0.2 mg PO TID #20 tabs 10/30/23 famotidine 20 mg tablet (Pepcid) 20 mg PO BID Reflux pain #14 tabs 10/30/23 gabapentin 300 mg capsule 300 mg PO TID #20 caps 10/30/23 hydroxyzine HCl 50 mg tablet 50 mg PO BID PRN anxiety #7 tabs 10/30/23 olanzapine 5 mg tablet 5 mg PO DAILY #7 tabs 10/30/23 varenicline 1 mg tablet 1 mg PO BID #14 tabs 10/30/23 Allergies Allergy/AdvReac Type Severity Reaction Status Date / Time aspirin [ASPIRIN] Allergy Severe ANAPHYLAXIS Verified 06/05/24 01:21 Review of Systems 2 Review of Systems: Constitutional : No Weight loss, No Fever, No Chills, No Night Sweats, No Fatigue, No Malaise ENT/Mouth : No Hearing loss, No Ear Pain, No Nasal Congestion, No Sinus Pain, No Hoarseness, No sore throat, No Rhinorrhea, No Swallowing Difficulty Eyes: No Eye Pain, No Swelling, No Redness, No Foreign Body, No Discharge, No Vision Changes Cardiovascular : Complaining of left-sided Chest Pain, No SOB, No Dyspnea on Exertion, No Orthopnea, No Edema, No Palpitations Respiratory : No Cough, No Sputum, complaining of Wheezing, No Smoke Exposure, No Dyspnea Gastrointestinal : No Nausea, No Vomiting, No Diarrhea, No Constipation, No abdominal Pain, No Hematochezia, No Melena Genitourinary : no irregular bleeding, No Dysuria, No Urinary Frequency, No Hematuria, No Urinary Incontinence, No Urgency, No Flank Pain, No Urinary Flow Changes, No Hesitancy Musculoskeletal : No joint pain, No Myalgias, No Joint Swelling Skin : No Skin Lesions, No rash Neuro : No Weakness, No Numbness, No Paresthesias, No Loss of Consciousness, No Dizziness, No Headache Psych : No Anxiety/Panic, No Depression, No SI/HI/AH/VH, No Social Issues, Heme/Lymph: No Bruising, No Bleeding,No Lymphadenopathy Endocrine : No Polyuria, No Polydipsia, No Temperature Intolerance [facility] Past Medical History Medical History Mood disorder Opiate use Social History Social History Smoked in Last 30 Days: No Use of substances other than those prescribed or required for medical reasons: No Substance Use Type: Marijuana Advance Directives: No Do you have a plan to hurt others: No Plan Physical Exam 2 Vital Signs: Vital Signs: Last Vital Signs Temp 97.9 F 06/05/24 02:56 Pulse 117 H 06/05/24 02:56 Resp 12 06/05/24 02:56 BP 122/74 06/05/24 02:56 Pulse Ox 96 06/05/24 02:56 O2 Del Method Room Air 06/05/24 02:56 BMI result Body Mass Index 30.6 Const: Other: Appearance: Alert. Oriented X3. No acute distress. Eyes: Pupils equal, round and reactive to light. ENT: Pharynx normal. Neck: Normal inspection. Neck supple. No lymph nodes noted. No crepitus CVS: Normal heart rate and rhythm. Pulses normal. Normal S1 and S2 Respiratory: No respiratory distress. Mild bilateral wheezing, good air movement Abdomen: Soft and nontender. No rigidity. No distention. Skin: Skin warm and dry. Normal skin color. Normal skin turgor. Extremities: No lower extremity edema. No Lacerations. No Rash Neuro: Oriented X 3. No motor deficit. No sensory deficit. Moving all extremities. No slurred speech. CN 2 through 12 grossly intact Psych: calm, cooperative, normal affect Medications Administered Discontinued Medications Generic Name Dose Route Start Last Admin Trade Name Freq PRN Reason Stop Dose Admin Albuterol/Ipratropium 3 ml 06/05/24 02:24 06/05/24 02:27 Albuterol/Iprat 2.5/0.5mg 3 Ml Ampul.Neb INHALE 06/05/24 02:25 3 ml ONCE ONE Administration Medical Decision Making Medical Decision Making [facility] Narrative: My interpretation of labs. White blood cell count 15.5, patient was seen a few hours ago at [facility] and received Solu-Medrol. Chemistry within normal limits, troponin negative -my interpretation of EKG: Sinus tachycardia, heart rate 106, no ST segment depression or elevation, no T-wave inversion, QTC 441. Patient tachycardia likely secondary to nebulization treatments which she received on [facility] and here -patient was ambulated in the emergency room, no desaturations -patient not wheezing, oxygen saturation 96% on room air Differential Diagnosis Differential Diagnoses: The differential diagnosis associated with the presentation includes (Anxiety, ACS, asthma) Admission/Observation Consideration of admission/observation: Escalation of care including admission/observation considered (Given patient's 2nd visit to the ER in a few hours, observation was considered.) Lab Data [facility] Lab Attestation statement: I reviewed the patient's lab results. 06/05/24 02:31 06/05/24 02:31 Labs: Lab Results 06/05/24 06/05/24 Range/Units 02:21 02:31 WBC 15.5 H (4.8-10.8) X10*3/uL RBC 4.68 (4.60-5.80) X10*6/uL Hgb 13.2 L (14.0-18.0) g/dl Hct 39.7 L (42.0-52.0) % MCV 84.8 (80.0-98.0) fL MCH 28.2 (27.0-33.0) pg MCHC 33.2 (31.0-36.0) g/dl RDW 11.8 (11.0-16.0) % Plt Count 334 (160-400) X10*3/uL MPV 10.5 (9.4-12.4) fL Immature Gran % (Auto) 0.5 H (0.0-0.4) % Neut % (Auto) 69.2 (45-73) % Lymph % (Auto) 22.4 (20-40) % Labette % (Auto) 7.3 (2-11) % Eos % (Auto) 0.3 (0-4) % Baso % (Auto) 0.3 (0-2) % Lymph # (Auto) 3.5 (1.2-4.9) X10*3/uL Labette # (Auto) 1.1 (0.1-1.2) X10*3/uL Eos # (Auto) 0.0 (0.0-0.4) X10*3/uL Baso # (Auto) 0.0 (0.0-0.2) X10*3/uL Abs Immat Gran (auto) 0.07 H (0.00-0.03) X10*3/uL Absolute Neuts (auto) 10.8 H (2.0-8.3) x10*3/uL Absolute Nucleated RBC 0.000 (0.0-0.012) X10*3/uL Nucleated RBC % (auto) 0.0 (0.0-0.2) /100WBC Sodium 141 (135-145) mmol/L Potassium 4.2 (3.3-5.1) mmol/L Chloride 104 (96-108) mmol/L Carbon Dioxide 27 (22-29) mmol/L Anion Gap 14 (12-20) BUN 20 H (9-16) mg/dL Creatinine 1.03 (0.5-1.4) mg/dL Estim Creat Clear Calc 98.5 Estimated GFR > 60 Random Glucose 110 (60-115) mg/dL Calcium 9.9 (8.4-10.2) mg/dL Troponin I High Sens 5.2 D (<3.5-35.0) ng/L Influenza Type A (PCR) NEGATIVE (Negative) Influenza Type B (PCR) NEGATIVE (Negative) RSV RNA Qual (PCR) NEGATIVE (Negative) SARS-CoV-2 RNA (RT-PCR) NEGATIVE (Negative) Independent Interpretation I performed an independent interpretation of an: EKG Critical Care Time Critical Care Time Critical Care Time: Yes Total Critical Care Time: 45 Attestation: I have personally provided critical care time. Time includes review of lab data, radiology results, discussion with consultants, and monitoring for potential decompensation. Intervention performed as documented. Discharge Plan Discharge Clinical Impression: Atypical chest pain, Asthma Patient Disposition: Home, Self-Care Instructions: Asthma (ED), Chest Pain (ED) Additional Instructions: Please follow-up with your primary care physician tomorrow. If you have any worsening or new symptoms, please return to the emergency room or call 911 Prescriptions: No Action methadone 10 mg/mL Concentrate 135 mg PO DAILY clonidine HCl 0.2 mg tablet 0.2 mg PO TID Qty: 20 0RF gabapentin 300 mg capsule 300 mg PO TID Qty: 20 0RF hydroxyzine HCl 50 mg tablet 50 mg PO BID PRN (Reason: anxiety) Qty: 7 0RF varenicline 1 mg tablet 1 mg PO BID Qty: 14 0RF olanzapine 5 mg tablet 5 mg PO DAILY Qty: 7 0RF famotidine [Pepcid] 20 mg tablet 20 mg PO BID Qty: 14 0RF Print Language: Armenian
[2024-06-05] MEDS: Albuterol/Iprat 2.5/0.5MG 3 ML AMPUL.NEB INHALE (02:27)
[2024-06-05 02:38] LABS: Basophils Percent Auto 0.3 % (0-2); Eosinophils Percent Auto 0.3 % (0-4); Hematocrit 39.7 % (42.0-52.0); Hemoglobin 13.2 g/dl (14.0-18.0); Imm Gran Abs Auto 0.07 X10*3/uL (0.00-0.03); Imm Gran Pct Auto 0.5 % (0.0-0.4); Lymphocytes Absolute Auto 3.5 X10*3/uL (1.2-4.9); Lymphocytes Percent Auto 22.4 % (20-40); MANUAL DIFF FLAG NO; Mean Corpuscular HGB Conc 33.2 g/dl (31.0-36.0); Mean Corpuscular Hemoglobin 28.2 pg (27.0-33.0); Mean Corpuscular Volume 84.8 fL (80.0-98.0); Mean Platelet Volume 10.5 fL (9.4-12.4); Monocytes Absolute Auto 1.1 X10*3/uL (0.1-1.2); Monocytes Percent Auto 7.3 % (2-11); Neutrophils Absolute Auto 10.8 x10*3/uL (2.0-8.3); Neutrophils Percent Auto 69.2 % (45-73); Platelet Count 334 X10*3/uL (160-400); Red Blood Count 4.68 X10*6/uL (4.60-5.80); Red Cell Distribution Width 11.8 % (11.0-16.0); White Blood Count 15.5 X10*3/uL (4.8-10.8)
[2024-06-05 02:51] LABS: Anion Gap 14 (12-20); Blood Urea Nitrogen 20 mg/dL (9-16); Calcium 9.9 mg/dL (8.4-10.2); Carbon Dioxide 27 mmol/L (22-29); Chloride 104 mmol/L (96-108); Creatinine Clr Calc Pharmacy 98.5; Estimated Glomerular Filt Rate > 60; Glucose Random 110 mg/dL (60-115); Potassium 4.2 mmol/L (3.3-5.1); Sodium 141 mmol/L (135-145)
[2024-06-05 02:57] LABS: Troponin-I High Sensitivity 5.2 ng/L (<3.5-35.0)
[2024-06-05 03:05] LABS: Influenza A PCR NEGATIVE (Negative); Influenza B PCR NEGATIVE (Negative); Resp Syncy Virus RNA Qual PCR NEGATIVE (Negative); SARS COV2 PCR INHOUSE NEGATIVE (Negative)
== END 2024-06-05 04:25 | disposition home or self-care (01) ==
PROVIDERS: Emergency Provider Emergency Medicine
DX: R07.89 Other chest pain (principal); J45.909 Unspecified asthma, uncomplicated; Z03.818 Encounter for observation for suspected exposure to other biological agents ruled out; F11.20 Opioid dependence, uncomplicated
CPT/HCPCS: 0241U; 80048; 84484; 85025; 93005; 94640; 99284; 99285

== ENCOUNTER → 2024-06-05 01:06 | Outpatient (BNV) | payer MEDICAID, SELFPAY | PROVIDERS: Emergency Provider Emergency Medicine; Visit Provider Internal Medicine Cardiovascular Disease | DX: R00.0 Tachycardia, unspecified (principal) | CPT/HCPCS: 93010 ==

== ENCOUNTER 2024-11-29 14:56 | Emergency (ER) | payer MEDICAID, SELFPAY ==
[2024-11-29 15:03] VITALS: BP 104/68; PULSE 88; O2SAT 96; BMI 25.0
--- NOTE | 2024-11-29 15:10 | ECG_ITS ---
Test Reason : od Blood Pressure : */* mmHG Vent. Rate : 79 BPM Atrial Rate : 79 BPM P-R Int : 136 ms QRS Dur : 88 ms QT Int : 390 ms P-R-T Axes : 60 22 42 degrees QTcB Int : 447 ms Normal sinus rhythm with sinus arrhythmia Septal infarct (cited on or before 14-Apr-2024) Abnormal ECG When compared with ECG of 05-Jun-2024 01:05, No significant change was found Referred By: Samreen Dickson Electronically Signed By: TONI LUTHER
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
[2024-11-29 15:36] LABS: Glucose, Whole Blood 90 mg/dL (60-115)
[2024-11-29] MEDS: diphenhydrAMINE HCL 50 MG/ML VIAL 25 MG IM (15:40)
[2024-11-29] MEDS: LORazepam 2 MG/ML VIAL IM (15:40)
[2024-11-29] MEDS: Haloperidol Lactate 5 MG/ML VIAL IM (15:40)
--- NOTE | 2024-11-29 15:45 | ED_ITS ---
HPI - Overdose General Chief Complaint: Overdose Stated Complaint: OD Time Seen by Provider: 11/29/24 14:59 History of Present Illness HPI Narrative: patient is a 39-year-old male with a history of being on Suboxone. History of Klonopin abuse. Found unresponsive. Was given Narcan which woke him up. Patient was found with a large bag of Whitish material next to him. Related Data Home Medications ?Medication ?Instructions ?Recorded ?Confirmed methadone 10 mg/mL oral concentrate 135 mg PO DAILY 10/30/23 10/30/23 Previous Rx's ?Medication ?Instructions ?Recorded clonidine HCl 0.2 mg tablet 0.2 mg PO TID #20 tabs 10/30/23 famotidine 20 mg tablet (Pepcid) 20 mg PO BID Reflux pain #14 tabs 10/30/23 gabapentin 300 mg capsule 300 mg PO TID #20 caps 10/30/23 hydroxyzine HCl 50 mg tablet 50 mg PO BID PRN anxiety #7 tabs 10/30/23 olanzapine 5 mg tablet 5 mg PO DAILY #7 tabs 10/30/23 varenicline tartrate 1 mg tablet 1 mg PO BID #14 tabs 10/30/23 Allergies Allergy/AdvReac Type Severity Reaction Status Date / Time aspirin [ASPIRIN] Allergy Severe ANAPHYLAXIS Verified 11/29/24 15:24 Review of Systems 2 Review of Systems: Patient unable to give detailed review of systems PMFSH Past Medical History Attestation statement: The following information was validated with the patient. Medical History Mood disorder Opiate use Social History Social History Unable to assess alcohol history related to: Unable to respond Use of substances other than those prescribed or required for medical reasons: Yes Substance Use Type: Marijuana Substance Use Type Other:: unknown Advance Directives: No Advance Directives Information Provided: No Do you have a plan to hurt others: Vague Physical Exam 2 Vital Signs: Vital Signs: Last Vital Signs Pulse 70 11/29/24 16:50 Resp 14 11/29/24 16:50 BP 100/51 L 11/29/24 16:50 Pulse Ox 95 11/29/24 16:50 O2 Del Method Room Air 11/29/24 16:50 BMI result Body Mass Index 25.0 Appearance: lethargic agitated moving all extremities Eyes: Pupils equal, round and reactive to light. ENT: Pharynx normal. Neck: Normal inspection. Neck supple. No lymph nodes noted. No crepitus CVS: Normal heart rate and rhythm. Pulses normal. Normal S1 and S2 Respiratory: No respiratory distress. Breath sounds normal. No Wheezing. No rales Abdomen: Soft and nontender. No rigidity. No distention. good BS x4 Skin: Skin warm and dry. Normal skin color. Normal skin turgor. Extremities: No lower extremity edema. Neurovascular intact to all extremities. No Lacerations. No Rash Neuro: lethargic agitated moving all extremities Medications Administered Discontinued Medications Generic Name Dose Route Start Last Admin Trade Name Freq PRN Reason Stop Dose Admin Diphenhydramine HCl 25 mg 11/29/24 15:31 11/29/24 15:40 Diphenhydramine Hcl 50 Mg/Ml Vial IM 11/29/24 15:32 25 mg ONCE ONE Administration Haloperidol Lactate 5 mg 11/29/24 15:31 11/29/24 15:40 Haloperidol Lactate 5 Mg/Ml Vial IM 11/29/24 15:32 5 mg ONCE ONE Administration Sodium Chloride 1,000 mls @ 999 mls/hr 11/29/24 15:15 11/29/24 19:36 Ns IV 11/29/24 16:15 Not Given .Q1H1M LATRICIA Lorazepam 2 mg 11/29/24 15:31 11/29/24 15:40 Lorazepam 2 Mg/Ml Vial IM 11/29/24 15:32 2 mg ONCE ONE Administration Medical Decision Making Medical Decision Making [facility] Narrative: 15:52 unable to redirect patient. He keep moving in all directions. unable to redirect patient. Patient's sugar was 90 there is no evidence for hypoglycemia. He woke up with Narcan. Likely some level of narcotic overdose. Additional labs are sent. Because of patient's extreme agitation moving about unable to stay in bed patient was given additional medication for sedation including 5 by Haldol to Ativan 25 of Benadryl. Will monitor very carefully. labs ordered. 8:55pm patient monitored in the emergency department. After the Haldol Ativan and Benadryl patient has been sleeping. Labs are done. They were fairly unremarkable. Alcohol level was negative. Will reassess patient when patient became more awake. Currently in stable condition. Differential Diagnosis Differential Diagnoses: The differential diagnosis associated with the presentation includes Narcotic overdose, benzo overdose Admission/Observation Consideration of admission/observation: Escalation of care including admission/observation considered Lab Data MDM Lab Attestation statement: I reviewed the patient's lab results. 11/29/24 15:57 11/29/24 15:57 Labs: Lab Results 11/29/24 11/29/24 Range/Units 15:32 15:57 WBC 9.1 (4.8-10.8) X10*3/uL RBC 4.05 L (4.60-5.80) X10*6/uL Hgb 11.6 L (14.0-18.0) g/dl Hct 34.0 L (42.0-52.0) % MCV 84.0 (80.0-98.0) fL MCH 28.6 (27.0-33.0) pg MCHC 34.1 (31.0-36.0) g/dl RDW 11.7 (11.0-16.0) % Plt Count 266 (160-400) X10*3/uL MPV 10.6 (9.4-12.4) fL Immature Gran % (Auto) 0.2 (0.0-0.4) % Neut % (Auto) 51.6 (45-73) % Lymph % (Auto) 32.8 (20-40) % [place] % (Auto) 9.6 (2-11) % Eos % (Auto) 5.4 H (0-4) % Baso % (Auto) 0.4 (0-2) % Lymph # (Auto) 3.0 (1.2-4.9) X10*3/uL [place] # (Auto) 0.9 (0.1-1.2) X10*3/uL Eos # (Auto) 0.5 H (0.0-0.4) X10*3/uL Baso # (Auto) 0.0 (0.0-0.2) X10*3/uL Abs Immat Gran (auto) 0.02 (0.00-0.03) X10*3/uL Absolute Neuts (auto) 4.7 (2.0-8.3) x10*3/uL Absolute Nucleated RBC 0.000 (0.0-0.012) X10*3/uL Nucleated RBC % (auto) 0.0 (0.0-0.2) /100WBC Sodium 141 (135-145) mmol/L Potassium 3.5 (3.3-5.1) mmol/L Chloride 107 (96-108) mmol/L Carbon Dioxide 25 (22-29) mmol/L Anion Gap 13 (12-20) BUN 19 H (9-16) mg/dL Creatinine 0.91 (0.5-1.4) mg/dL Estim Creat Clear Calc 96.6 Estimated GFR > 60 POC Glucose 90 (60-115) mg/dL Random Glucose 105 (60-115) mg/dL Calcium 9.2 D (8.4-10.2) mg/dL Hold Red Top See Note Hold Yellow Top See Note Ethyl Alcohol < 10 mg/dL Independent Interpretation I performed an independent interpretation of an: EKG ( sinus heart rate is 80 SC QRS QTC normal no acute ST segment elevation noted.) Radiology Impression Discussion of test interpretation with radiology: I have reviewed the radiologist's reading. Chronic Conditions Polysubstance abuse Social Determinants Patient?s care significantly limited by Social Determinants of Health including: Alcoholism and drug addiction in family Critical Care Time Critical Care Time Critical Care Time: Yes Total Critical Care Time: 40 Attestation: I have personally provided 40 minutes of critical care time exclusive of time spent on separately billable procedures. Time includes review of lab data, radiology results, discussion with consultants, and monitoring for potential decompensation. Interventions were performed as documented above Discharge Plan Discharge Clinical Impression: Drug overdose, Heroin overdose Prescriptions: No Action methadone 10 mg/mL Concentrate 135 mg PO DAILY clonidine HCl 0.2 mg tablet 0.2 mg PO TID Qty: 20 0RF gabapentin 300 mg capsule 300 mg PO TID Qty: 20 0RF hydroxyzine HCl 50 mg tablet 50 mg PO BID PRN (Reason: anxiety) Qty: 7 0RF varenicline tartrate 1 mg tablet 1 mg PO BID Qty: 14 0RF olanzapine 5 mg tablet 5 mg PO DAILY Qty: 7 0RF famotidine [Pepcid] 20 mg tablet 20 mg PO BID Qty: 14 0RF Print Language: Mosotho
[2024-11-29 16:04] LABS: MANUAL DIFF FLAG NO
[2024-11-29 16:09] LABS: Basophils Percent Auto 0.4 % (0-2); Eosinophils Absolute Auto 0.5 X10*3/uL (0.0-0.4); Eosinophils Percent Auto 5.4 % (0-4); Hemoglobin 11.6 g/dl (14.0-18.0); Imm Gran Abs Auto 0.02 X10*3/uL (0.00-0.03); Imm Gran Pct Auto 0.2 % (0.0-0.4); Lymphocytes Percent Auto 32.8 % (20-40); Mean Corpuscular HGB Conc 34.1 g/dl (31.0-36.0); Mean Corpuscular Hemoglobin 28.6 pg (27.0-33.0); Mean Platelet Volume 10.6 fL (9.4-12.4); Monocytes Absolute Auto 0.9 X10*3/uL (0.1-1.2); Monocytes Percent Auto 9.6 % (2-11); Neutrophils Absolute Auto 4.7 x10*3/uL (2.0-8.3); Neutrophils Percent Auto 51.6 % (45-73); Platelet Count 266 X10*3/uL (160-400); Red Blood Count 4.05 X10*6/uL (4.60-5.80); Red Cell Distribution Width 11.7 % (11.0-16.0); White Blood Count 9.1 X10*3/uL (4.8-10.8)
--- NOTE | 2024-11-29 16:09 | MHC.EDTECH ---
Patient's belongings were placed in the [place] shelf#1, security went through belongings, patient has a $100.00 dollar bill folded in wallet that is half ripped,RN aware,copy placed in chart
[2024-11-29 16:16] LABS: Anion Gap 13 (12-20); Blood Urea Nitrogen 19 mg/dL (9-16); Calcium 9.2 mg/dL (8.4-10.2); Carbon Dioxide 25 mmol/L (22-29); Chloride 107 mmol/L (96-108); Creatinine Clr Calc Pharmacy 96.6; Estimated Glomerular Filt Rate > 60; Glucose Random 105 mg/dL (60-115); Potassium 3.5 mmol/L (3.3-5.1); Sodium 141 mmol/L (135-145)
[2024-11-29 16:18] LABS: Ethanol < 10 mg/dL
--- OUTSIDE RECORDS SUMMARY | 2024-11-29 16:45 | XMS_ITS | Encounter Summary ---
Author Organization [facility] Address [address] [place] [address] Care Team Providers Care Web User Experience Strategist Name Role Phone Yun Gutierrez SHOVEL OPERATOR Primary Care Provider [phone] Reason for Visit * Reason Comments Case Management Financial Resources and Domestic [facility] referrals Encounter Details Date Type Department Care Team ([facility] Contact Info) Description 07/24/2019 / Visits [facility] [address] [place] [phone] Beverly Hung [address] [place], [place] [phone] Social History Tobacco Use Types Packs/Day Years Used Date Smoking Tobacco: Every Day Cigarettes 0.1 15 Smokeless Tobacco: Never Alcohol Use Standard Drinks/Week Comments Not Currently 0 (1 standard drink = 0.6 oz pur e alcohol) Social Connections Answer Date Recorded Social Connections and Isolation 0 04/21/2019 Financial Resource Strain Answer Date R ecorded Financial Resource Strain 0 2018 Stress Answer Date Recorded Stress 0 04/21/2019 Physical Activity Answer Date Recorded Physical Activity 0 04/21/2019 Food Insecurity Answer Date Recorded Food 0 04/21/2019 Transportation Needs Answer Date Record ed Transportation 0 04/21/2019 Housing Stability Answer Date Recorded Housing 0 04/21/2019 Safety and Environment Answer Date Trae rded Safety 0 04/21/2019 Utilities Answer Date Recorded Utilities 0 04/21/2019 Employment Answer Date Recorded Employment 0 04/21/2019 Sex and Gender Information Value Date Recorded Sex Assigned at Male 03/18/2019 11:28 AM PDT Legal Sex Male 12:23 PM PDT Gender Identity Male 03/18/2019 11:28 AM PDT Sexual Orientation Straight 03/18/2019 11 :28 AM PDT Occupation Industry Job Start Date Job End Date Unemployed Not on file Not on file Not on file documented as of this encounter Plan of Treatment Not on file documented as of this encounter Visit Diagnoses Not on filedocumented in this encounter Additional Health Concerns Infection Onset Date Last Indicated Resolved Time COVID-19 (rule-out) Comment:Added automatically based on ordered lab. 05/06/2021 05/06/2021 05/27/2021 7:09 PM P DT Assessment Noted Time PHQ-9 Depression Total Score: 16 019 3:00 PM PDT documented as of this encounter Care Teams Web User Experience Strategist Relationship Specialty Start Date End Date Yun Gutierrez FNP [address] [place] [address] PCP - General Internal Medicine 07/19/19 documented as of this encounter
--- OUTSIDE RECORDS SUMMARY | 2024-11-29 16:45 | XMS_ITS ---
Author Organization [facility] Address [address] [place] [phone] Care Team Providers Care Test Manager Name Role Phone Dave Coates Primary Care Provider REASON FOR VISIT labs Social History Sex Assigned At : Social History Observation Description Sex Assigned At Male Encounters Encounter Location Date Provider Diagnosis [address] [id number] 11/16/2024 Dave Coates Plan Of Treatment Next Appt Details Provider Name:Dave Coates, 01/17/2025 10:40:00 AM, [address] [place] [address], [id number], Provider Name:Kerri Stoll, 01/17/2025 11:00:00 AM, [address] [place] [address], [phone], Progress Notes * Jose Guadalupe SPARKS ODOB:[birth year] (39 yo M)Acc No.[id number]:11/16/2024 Patient:?Jose Guadalupe SPARKS :1985???Age:39 Y???Sex:Male Address:[address] [place] [id number] * * Date:?
--- OUTSIDE RECORDS SUMMARY | 2024-11-29 16:45 | XMS_ITS | Clinical Summary ---
Author Organization [facility] Address [address] [place] [address] Care Team Providers Care Report Specialist Name Role Phone Yun Gutierrez [facility] Primary Care Provider [phone] Source Comments PLEASE NOTE, if this patient is a minor, it may be UNLAWFUL to discuss sensitive information that is contained in these records (such as FAMILY PLANNING, MENTAL HEALTH or SUBSTANCE ABUSE) with the minor patient's parent or other person without the patient's specific authorization.[facility] Allergies Active Allergy Reactions Criticality Noted Date Comments Aspirin Anaphylaxis 05/11/2019 Nsaids (Non-Steroidal Anti-I nflammatory Drug) Anaphylaxis 05/11/2019 Medications cloNIDine HCL (CATAPRES) 0.2 mg tabletIndicatio ns:Anxiety,PTSD (post-traumatic stress disorder) TAKE 1 TABLET BY MOUTH 3 TIMES DAILY NEEDED (ANXIETY). 60 Tablet 3 Active QUEtiapine (SEROQUEL) 400 mg tabletIndicatio ns:Anxiety Take 1 Tablet by mouth nightly at bedtime 30 Tablet 1 3 Active methadone (DOLOPHINE) 10 mg tablet 110 mg daily from Meth[facility]one clinic 0 3 Active gabapentin (NEURONTIN) 400 mg capsuleIndicati ons:Anxiety TAKE 1 CAPSULE BY MOUTH 2 (TWO) TIMES DAILY NEEDED FOR HAND PAIN 60 Capsule 3 Active hydrOXYzine HCL (ATARAX) 50 mg tabletIndicatio ns:Anxiety TAKE 1 TABLET BY MOUTH TWICE A DAY NEEDED FOR ANXIETY 60 Tablet 3 Active Active Problems Problem Noted Date Diagnosed Date Chronic pain of right hand 09/14/2022 Overview (09/14/2022): S/p fracture and operative repair in 2020 Anxiety 04/06/2020 History of incarceration 08/07/2019 Alcoholism ([facility]) 07/20/2019 Depression 07/20/2019 Tobacco abuse 05/11/2019 Cannabis abuse 05/11/2019 Opioid use disorder, severe, on maintenance therapy, dependence ([facility]) 03/18/2019 Asthma ([facility]) 03/18/2019 Overview (06/14/2024): 06/02/24-06/04/24 Admitted to [facility] for acute asthma exacerbation, complicated by polysubstance use. PTSD (post-traumatic stress disorder) 03/18/2019 Opioid type dependence, continuous ([facility]) Resolved Problems Problem Noted Date Diagnosed Date Resolved Date Suicidal ideation 07/20/2019 09/14/2022 Cocaine abuse ([facility]) 05/11/201908/28 Immunizations Immunization Administration Dates Next Due Flu, Preservative Free 10/03/2019 Hep A, adult 11/24/2008,05/20/2008 Hep B, Adult/Adol (ENERGIX/RECOMBIVAX) 9,07/01/2008,05/20/2008 Moderna COVID-19 Vaccine, re d cap blue label, 12+ Primary Series 09/14/2022,02/11/2021 TDAP 06/22/2022,10/01/2020,10/03/2019 Family History Medical History Relation Name Comments Diabetes Father Cancer Maternal Grandmother skin Depression Mother Relation Name Status Comments Father Alive Maternal Grandmother Mother Social History Tobacco Use Types Packs/Day Years Used Date Smoking Tobacco: Every Day Cigarettes 0.1 15 Smokeless Tobacco: Former Quit: 06/02/2019 Tobacco Cessation:Counseling Given: Yes Alcohol Use Standard Drinks/Week Comments Not Currently 0 (1 standard drink = 0.6 oz pur e alcohol) Social Connections Answer Date Recorded Connectedness 0 01/14/2021 Financial Resource Strain Answer Date R ecorded Financial Resource Strain 0 2020 Stress Answer Date Recorded Stress 0 01/14/2021 Physical Activity Answer Date Recorded Physical Activity 0 01/14/2021 Food Insecurity Answer Date Recorded Food 0 01/14/2021 Transportation Needs Answer Date Record ed Transportation 0 01/14/2021 Housing Stability Answer Date Recorded Housing 0 01/14/2021 Safety and Environment Answer Date Trae rded Safety 0 04/21/2019 Utilities Answer Date Recorded Utilities 0 01/14/2021 Employment Answer Date Recorded Employment 0 04/21/2019 Sex and Gender Information Value Date Recorded Sex Assigned at Male 03/18/2019 11:28 AM PDT Legal Sex Male 12:23 PM PDT Gender Identity Male 03/18/2019 11:28 AM PDT Sexual Orientation Straight 03/18/2019 11 :28 AM PDT Occupation Industry Job Start Date Job End Date Unemployed Not on file Not on file Not on file Last Filed Vital Signs Vital Sign Reading Time Taken Comments Blood Pressure 96/70 07/11/2023 9:20 AM EST Pulse 78 07/11/2023 9:20 AM EST Temperature 36.6 ??C (97.8 ??F) 07/11/2023 9:20 AM ES T Respiratory Rate 16 07/11/2023 9:20 AM EST Oxygen Saturation 96% 06/27/2023 1:14 PM EDT Inhaled Oxygen Concentration - - Weight 85.5 kg (188 lb 9.6 oz) 07/11/2023 9:20 A M EST Height 165.1 cm (5' 5 ) 06/27/2023 1:14 PM EDT Body Mass Index 31.38 06/27/2023 1:14 PM EDT Plan of Treatment Health Maintenance Due Date Last Done Comments Anxiety Screening 1985 Imm-Pneumococcal (1 of 2 - PCV) 2006 Lipid Screening 07/19/2020 07/19/2019 Diabetes Screening 07/30/2020 07/30/2019, 1 09/18/2018, 03/18/2019 Tobacco Screening 09/14/2023 09/14/2022 Depression Monitoring 09/27/2023 06/27/2023 , 09/14/2022, 03/18/2019 [id number] ( season) 2024 09/14/2022, 11/25/2021, 02/11/2021 Imm-Influenza (#1) 2024 09/30/2021, 10/03/2019 Tobacco Cessation Counseling (#1) 07/10/2024 023 Alcohol and Drug Screen 08/28/2024 06/27/20 23, 03/30/2021, 03/18/2019, Additional history exists Hypertension Screening (#1) 07/10/2026 Imm-DTaP/Tdap/Td (6 - Td or Tdap) 06/22/2032 06/22/2022, 01/25/2022, 10/01/2020, Additional history exists Imm-Hepatitis B Discontinued 10/20/2008, 11/11/2007, 05/20/2008 Imm-Hepatitis A Completed 11/24/2008, 05/20/2008 Hepatitis C Screening Completed 03/18/2019 HIV Screening Completed 07/30/2019, 03/18/2019 Procedures Procedure Name Priority Date/Time Associated Diagnosis Comments ANTIBODY HIV-1&HIV-2 SINGLE RESULT Routine 07/30/2019 11:34 AM EST Epigastric pain COMPREHENSIVE METABOLIC PANEL Routine 07/30/2019 11:34 AM EST Epigastric pain LIPID PANEL Routine 07/19/2019 3:49 PM EST Laboratory exam ordered as part of routine general medical examination HEPATITIS A,B,C PANEL Routine 03/18/2019 1:28 PM EDT Opioid use disorder, severe, on maintenance therapy, dependence (HCC-CMS) from Last 3 Months or Most Recently Relevant to Health Maintenance Results * HIV-1 & HIV-2 ANTIBODIES (07/30/2019 11:34 AM EST) [facility] HIV 1 AND 2 ANTIBODY SCREEN NEGATIVE NEGATIVE [facility] Comment: This assay is a 4th generation assay allowing for earlier detection of HIV infection by detecting the presence of the HIV-1 p24 antigen as well as the traditional antibodies to HIV type 1 (including group O) and type 2. ??Use of a 4th generation assay is the current CDC recommendation for HIV screening. Blood specimen (specimen) Blood / Unknown 07/30/2019 11:34 AM EST 07/30/2019 11:36 AM EST Narrative [facility] - 07/30/2019 4:26 PM EST [employer], a member of [address] Director - Emilia Barry MD BASE:1130 POST:1145 PT ID [id number] ORD# [id number] Brodie Smith PA-C LAB - BLOOD DRAW Final Result [facility] [address] [place] [address], * (ABNORMAL) COMPRE METAB PANEL (07/30/2019 11:34 AM EST) GLUCOSE 113(H) 70 - 100 mg/dL [facility] Comment:Reference range appl icable to fasting specimens only BUN 18 5 - 25 mg/dL [facility] CREAT 0.96 0.7 - 1.3 mg/dL [facility] GLOMERULAR FILTRATION RATE > 60 [facility] Comment: If patient is -Albanian, multiply result by 1.21 Chronic Kidney Disease: < 60 ml/min/1.73 square meters Kidney Failure: < 15 ml/min/1.73 square meters SODIUM 136 135 - 145 mEq/L [facility] POTASSIUM 3.9 3.5 - 5.5 mmol/L [facility] CHLORIDE 103 96 - 110 mmol/L [facility] CO2 29 21 - 32 mmol/L [facility] ANION GAP 4 3 - 11 [facility] CALCIUM 10.2 8.5 - 10.5 mg/dL [facility] TOTAL PROTEIN 8.1(H) 6.0 - 8.0 G/dL [facility] ALBUMIN 5.0 3.2 - 5.0 G/dL [facility] BILI, TOTAL 0.6 0.0 - 1.4 mg/dL [facility] SGOT 16 10 - 42 U/L [facility] SGPT 27 10 - 60 U/L [facility] ALK PHOS 156(H) 42 - 121 U/L [facility] Blood specimen (specimen) Blood / Unknown 07/30/2019 11:34 AM EST 07/30/2019 11:36 AM EST Narrative [facility] - 07/30/2019 3:37 PM EST Doug Kumar, [place] [address] [employer] Mexican Food Maker - Emilia Barry MD BASE:1130 POST:1145 PT ID [id number] ORD# [id number] Brodie NICOLE-C LAB - BLOOD DRAW Final Result [address] [address], * LIPID PANEL (07/19/2019 3:49 PM EST) CHOLESTEROL 133 0 - 200 mg/dL [facility] TRIGLYCERIDES 87 0 - 150 mg/dL [facility] HDL CHOLESTEROL 52 >40 mg/dL [facility] LDL CALCULATED 64 0 - 100 mg/dL [facility] TC-HDLC RATIO 2.6 0 - 4.4 mg/dL [facility] Blood specimen (specimen) Blood / Unknown 07/19/2019 3:49 PM EST 07/19/2019 3:58 PM EST Narrative [facility] - 07/19/2019 7:08 PM EST [email or web address], [place] [address] [employer] Mexican Food Maker - Emilia Barry MD PT ID [id number] ORD# [id number] Rodrigo Le NP LAB - BLOOD DRAW Final Result Performing Organization Address City/[facility]/ZIP Co de Phone Number [address] [address], * (ABNORMAL) HEPATITIS A,B,C PANEL (03/18/2019 1:28 PM EDT) HEPATITIS B SURFACE ANTIBODY POSITIVE(A) NEGATIVE [facility] HEPATITIS B SURFACE ANTIGEN NEGATIVE NEGATIVE [facility] Comment: Over the counter supplements containing high doses of biotin may interfere with this assay. ??If interference is suspected, patients shoud be retested after refraining from biotin supplements for 72 hours. HEPATITIS C VIRUS DIAGNOSTIC NEGATIVE NEGATIVE [facility] HEPATITIS B CORE ANTIBODY NEGATIVE NEGATIVE [facility] HEPATITIS A ANTIBODY TOTAL POSITIVE(A) NEGATIVE [facility] Comment: Over the counter supplements containing high doses of biotin may interfere with this assay. ??If interference is suspected, patients shoud be retested after refraining from biotin supplements for 72 hours. Blood specimen (specimen) Blood / Unknown 03/18/2019 1:28 PM EDT 03/18/2019 1:39 PM EDT Narrative [facility] - 03/18/2019 4:09 PM EDT [employer], [place] [address] [employer] Mexican Food Maker - Madiha Monae MD PT ID [id number] ORD# [id number] Asia Blankenship PA-C LAB - BLOOD DRAW Edited R esult - Final [address] [address], from Last 3 Months or Most Recently Relevant to Health Maintenance Insurance [facility] Care Teams Report Specialist Relationship Specialty Start Date End Date Yun Gutierrez FNP [address] [place] [address] PCP - General Internal Medicine 07/19/19
--- OUTSIDE RECORDS SUMMARY | 2024-11-29 16:45 | XMS_ITS ---
Author Organization [facility] Address [address] [place] [phone] Care Team Providers Care Street Engineer Name Role Phone Dave Coates Primary Care Provider [facility], Nursing Unavailable [phone] REASON FOR VISIT office ; lab work Social History Sex Assigned At : Social History Observation Description Sex Assigned At Male Encounters Encounter Location Date Provider Diagnosis [address] [phone] 11/28/2024 Nursing [facility] Plan Of Treatment Next Appt Details Provider Name:Dave Coates, 01/17/2025 10:40:00 AM, [address] [place] [address], [phone], Provider Name:Kerri Stoll, 01/17/2025 11:00:00 AM, [address] [place] [address], [phone], Progress Notes * Jose Guadalupe ELLIS ODOB:[birth year] (39 yo M)Acc No.[id number]:11/28/2024 Progress Notes Patient:?Jose Guadalupe ELLIS Provider:?Provider [facility] :1985???Age:39 Y???Sex:Male [place] e:11/28/2024 Address:[address] [place] [phone] Pcp:Dave Coates Subjective: * Chief Complaints: * ???1. Office ; lab work. Objective: * Vitals:? Assessment: Plan: * Treatment: * Images: Billing Information: * Visit Code:? * Procedure Codes:? * Electronic signature of [facility] on 11/29/2024 at 04:44 PM EDT Sign off status: Pending * Provider:?Provider [facility] Date:?11/28/2024 Generated for Carlos cortes/Sylvia/Francisca on:?11/29/2024 04:44 PM EDT
--- OUTSIDE RECORDS SUMMARY | 2024-11-29 16:45 | XMS_ITS | Patient Health Record ---
Author Organization 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 Name Role Phone Cathie Coates Primary Care Provider Kerri Stoll Unavailable [phone] [facility], Nursing Unavailable [phone] Gregoria Botello Unavailable [phone] [facility], CHW Unavailable [phone] Casionan, Eddieliza Unavailable [phone] Allergies Allergen (clinical drug ingredient) Drug/Non Drug Allergy documented on EMR Reaction Allergy Type Onset Date Status aspirin aspirin anaphylaxis Drug Allergy Activ e Results Component Value Reference Range Notes Blood Sugar/finger stick Reviewed date:11/15/2024 11:01:59 AM Interpretation:High 138 Performing Lab: Notes/Report: High 138 CBC Reviewed date:04/30/2024 04:30:25 PM Interpretation:Hgb 12.1 Performing Lab: Notes/Report: Original Ordering Provider: CATHIE COATES MD [employer], a member of [address] [address] [employer] Machinery Engine Mechanic - Rosaura Alejandro MD WBC 8.2 4.8-10.8 x10-3/uL RBC 4.3 4.5-5.5 x10-6/uL HEMOGLOBIN 12.1 13.5-17.5 g/dL HEMATOCRIT 38.0 42-54 % MCV 88.6 79-98 fL MCH 28.2 27-32 pg MCHC 31.8 32-37 g/dL RDW 11.6 11-15 % PLT COUNT 307 130-400 x10-3/uL MEAN PLATELET VOLUME 11.6 7-11 fL NRBC % AUTO 0.0 <1 % NRBC # AUTO 0.00 <0.1 x10-3/uL COMPREHENSIVE METABOLIC PANE L Reviewed date:04/30/2024 04:29:34 PM Interpretation:Normal Performing Lab: Notes/Report: Original Ordering Provider: CATHIE COATES MD GLUCOSE 106 70-100 mg/dL Reference range applicable to fasting specimens only BUN 23 5-25 mg/dL CREAT 0.78 0.7-1.3 mg/dL GLOMERULAR FILTRATION RATE 119 >60 This eGFR result was calculated using the CKD-EPI 2020 Creatinine Equation SODIUM 138 135-145 mEq/L POTASSIUM 4.2 3.5-5.5 mmol/L CHLORIDE 107 96-110 mmol/L CO2 26 21-32 mmol/L ANION GAP 5 3-11 CALCIUM 9.6 8.5-10.5 mg/dL TOTAL PROTEIN 7.5 6.0-8.0 G/dL ALBUMIN 4.4 3.2-5.0 G/dL BILI,TOTAL 0.3 0.0-1.4 mg/dL SGOT 19 10-42 U/L SGPT 42 10-60 U/L ALK PHOS 117 42-121 U/L GLYCOHEMOGLOBIN PROFILE Reviewed date:04/30/2024 04:29:59 PM Interpretation:4.9 Performing Lab: Notes/Report: Original Ordering Provider: CATHIE COATES MD [employer], [place] [address] [employer] Mach[employer] Engine Mechanic - Rosaura Alejandro MD GLYCATED HEMOGLOBIN A1C 4.9 <6.5 % ESTIMATED AVERAGE GLUCOSE 94 HEPATITIS C VIRUS SCREEN Reviewed date:04/30/2024 04:30:14 PM Interpretation:Negative Performing Lab: Notes/Report: [employer] [address] [employer] Engine Mechanic - Rosaura Alejandro MD HEPATITIS C VIRUS SCREEN NEGATIVE NEGATIVE HEPATITIS B CORE AB TOTAL Reviewed date:04/27/2024 09:34:23 AM Interpretation:Negative Performing Lab: Notes/Report: HEPATITIS B CORE ANTIBODY NEGATIVE NEGATIVE HEPATITIS B SURFACE ANTIBODY Reviewed date:04/30/2024 04:30:39 PM Interpretation:IMMUNE Performing Lab: Notes/Report: HEPATITIS B SURFACE ANTIBODY POSITIVE NEGATIVE HEPATITIS B SURFACE ANTIGEN Reviewed date:04/27/2024 09:34:56 AM Interpretation:Negative Performing Lab: Notes/Report: HEPATITIS B SURFACE ANTIGEN NEGATIVE NEGATIVE Over the counter supplements containing high doses of biotin may interfere with this assay. If interference is suspected, patients shoud be retested after refraining from biotin supplements for 72 hours. HIV 1 AND 2 ANTIBODY SCREEN Reviewed date:04/27/2024 09:34:12 AM Interpretation:Negative Performing Lab: Notes/Report: HIV 1 AND 2 SCREEN NEGATIVE NEGATIVE This assay is a 4th generation assay allowing for earlier detection of HIV infection by detecting the presence of the HIV-1 p24 antigen as well as the traditional antibodies to HIV type 1 (including group O) and type 2. Use of a 4th generation assay is the current CDC recommendation for HIV screening. LIPID PROFILE Reviewed date:04/30/2024 04:29:49 PM Interpretation:LDL 117 Performing Lab: Notes/Report: CHOLESTEROL 201 0-200 mg/dL TRIGLYCERIDES 148 0-150 mg/dL HDL CHOLESTEROL 55 >40 mg/dL LDL CALCULATED 117 0-100 mg/dL TC-HDLC RATIO 3.7 0-4.4 mg/dL TSH CASCADE Reviewed date:04/27/2024 09:35:34 AM Interpretation:Normal Performing Lab: Notes/Report: TSH CASCADE 2.23 0.40-4.00 uIU/ml CBC Reviewed date:09/04/2024 01:41:47 PM Interpretation:Hgb 11.8 Performing Lab: Notes/Report: Hgb 11.8 HEMATOCRIT 37 HEMOGLOBIN 11.8 MCV 87 PLT COUNT 198 WBC 6.2 COMPREHENSIVE METABOLIC PANE L Reviewed date:09/04/2024 01:43:28 PM Interpretation:glu 142 Performing Lab: Notes/Report: glu 142 ALBUMIN 4.1 ALK PHOS 90 SGPT 22 SGOT 23 BILI,TOTAL 0.2 BUN 14 CALCIUM 8.6 CHLORIDE 104 CO2 24 CREAT 0.9 GLUCOSE 142 POTASSIUM 4.2 SODIUM 140 TOTAL PROTEIN 6.8 CBC Reviewed date:09/04/2024 01:38:09 PM Interpretation:Hgb 11.3 Performing Lab: Notes/Report: Hgb 11.3 HEMATOCRIT 34 HEMOGLOBIN 11.3 MCV 86 PLT COUNT 248 WBC 8.9 COMPREHENSIVE METABOLIC PANE L Reviewed date:09/04/2024 01:39:37 PM Interpretation:Normal Performing Lab: Notes/Report: Normal ALBUMIN 4.5 ALK PHOS 97 SGPT 15 SGOT 18 BILI,TOTAL 0.4 BUN 18 CALCIUM 9.0 CHLORIDE 105 CO2 24 CREAT 0.8 GLUCOSE 86 POTASSIUM 4.0 SODIUM 142 TOTAL PROTEIN 7.0 TSH Reviewed date:09/04/2024 01:40:16 PM Interpretation:Normal Performing Lab: Notes/Report: Normal TSH 0.75 CR Chest Routine 2 Views Reviewed date:09/04/2024 01:44:28 PM Interpretation:Normal Performing Lab: Notes/Report: Normal Reason For Referral No Information Medications Medication SIG (Take, Route, Fr equency, Duration) Notes Start Date End Date Status OLANZapine 5 mg 1 tab(s) orally once a day at bedtime for 30 days 09/03/2024 Active OLANZapine 5 mg 1 tab(s) orally once a day at bedtime for 30 days Active Suboxone 8 mg-2 mg DISSOLVE 1 FILM UNDER THE TONGUE THREE TIMES DAILY sublingually three times a day for 14 days for 11/19/24 11/15/2024 Active cloNIDine 0.2 mg 1 tab(s) orally 3 ti mes a day for 30 days Active Immunizations Vaccine Route Administration Date Status Comme nts Hepatitis A IM Intramuscular 03/26/2024 Administered [facility] [id number] Tdap IM Intramuscular 03/26/2024 Administered [facility]-49 281-400-20 Influenza IM Intramuscular 09/03/2024 Administered Hepatitis A IM Intramuscular 09/26/2024 Administered [place]:5 [id number] Social History Tobacco Use: Social History Observation Description Date Details (start date - stop date) Former Smoker NA - NA Sex Assigned At : Social History Observation Description Sex Assigned At Male Tobacco Use Assessment MU Question Answer Notes What is your current smoking status? former smok er How long has it been since you last smoked? 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) Active confirmed Problem Posttraumatic stress disorder (63260141) Post-traumatic stress disorder, chronic (F43.12) Active confirmed Problem Polyneuropathy (87947571) Polyneuropathy in diseases classified elsewhere (G63) Active confirmed Problem Tobacco use (604100600) Tobacco use (Z72.0) Active confirmed Problem Obsessive-compuls goldie disorder (307404552) Obsessive-compuls goldie disorder, unspecified (F42.9) Active confirmed Problem Nondependent cocaine abuse in remission (468407969) Cocaine abuse, in remission (F14.11) Active confirmed Problem Sheltered homelessness (078580673792007) Sheltered homelessness (Z59.01) Active confirmed Vital Signs Temperature 97.9 degrees Fahrenheit 11/15/2024 Blood pressure diastolic 73 11/15/2024 Oximetry 94 11/15/2024 Height 67 in 11/15/2024 Blood pressure systolic 114 11/15/2024 Weight 175.2 lbs 11/15/2024 BMI 27.44 kg/m2 11/15/2024 Procedures Procedure Date Ordered Date Performed Result Body Sit e EKG 08/29/2024 08/29/2024 Normal Encounters Encounter Location Date Provider Diagnosis [address] [id number] 11/28/[address] [id number] 03/08/2024 [facility] Laceration without foreign body of left hand, initial encounter S61.412A [address] [id number] 03/26/2024 Cathie Coates Encounter for screening for COVID-19 Z11.52 ; Unspecified psychosis not due to a substance or known physiological condition F29 ; Post-traumatic stress disorder, chronic F43.12 ; Opioid dependence, uncomplicated F11.20 ; Encounter for screening for infections with a predominantly sexual mode of transmission Z11.3 ; Encounter for screening for human immunodeficiency virus [HIV] Z11.4 ; Encounter for screening for lipoid disorders Z13.220 ; Encounter for screening for diabetes mellitus Z13.1 ; Encounter for immunization Z23 ; Tobacco use Z72.0 and Sheltered homelessness Z59.[address] [id number] 04/26/2024 Nursing [facility] Encounter for screening, unspecified Z13.[address] [id number] 04/26/[address] [address] [id number] 05/03/2024 Cathie Coates Unspecified psychosi s not due to a substance or known physiological condition F29 ; Post-traumatic stress disorder, chronic F43.12 ; Opioid dependence, uncomplicated F11.20 and Sheltered homelessness Z59.01 [facility] [address] [place] [address] [facility] [place] [id number] 05/28/2024 Cathie Coates Encounter for screening for COVID-19 Z11.52 ; Opioid dependence, uncomplicated F11.20 and Unspecified psychosis not due to a substance or known physiological condition F29 [address] [id number] 09/03/2024 Cathie Coates Encounter for screening for COVID-19 Z11.52 ; Opioid dependence, uncomplicated F11.20 ; Sheltered homelessness Z59.01 ; Post-traumatic stress disorder, chronic F43.12 ; Encounter for immunization Z23 and Diarrhea, unspecified R19.[address] [id number] 09/26/2024 [facility] [place] Encounter for immunization Z23 [address] [id number] 09/26/2024 Kerri Stoll Post-traumatic stres s disorder, chronic F43.12 ; Unspecified psychosis not due to a substance or known physiological condition F29 ; Opioid dependence, uncomplicated F11.20 and Encounter for screening for COVID-[address] [id number] 11/15/2024 Cathie Coates Encounter for screening for COVID-19 Z11.52 ; Opioid dependence, uncomplicated F11.20 ; Sheltered homelessness Z59.01 ; Tobacco use Z72.0 and Polyneuropathy in diseases classified elsewhere G63 [address] [id number] 11/15/2024 Kerri Stoll Unspecified psychosi s not due to a substance or known physiological condition F29 ; Post-traumatic stress disorder, chronic F43.12 ; Opioid dependence, uncomplicated F11.20 and Encounter for screening for COVID-19 [address]11.[address] [id number] 06/03/2024 Cathie Coates [address] [id number] 11/16/2024 Cathie Heltonder [address] [id number] 12/05/2023 Cathie Balder [address] [id number] 01/26/2024 Cathie Balder [address] [id number] 03/11/2024 Cathie Balder [address] [id number] 03/26/2024 Cathie Balder [address] [id number] 04/30/2024 Cathie Balder [address] [id number] 05/03/2024 Cathie Balder [address] [id number] 05/03/2024 Cathie Balder [address] [id number] 05/06/2024 Cathie Balder [address] [id number] 05/21/2024 Cathie Balder [address] [id number] 05/28/2024 Cathie Balder [address] [id number] 07/12/2024 Cathie Balder [address] [id number] 08/15/2024 Cathie Heltonshanda Unspecified psychosi s not due to a substance or known physiological condition F29 and Opioid dependence, uncomplicated F11.[address] [id number] 09/04/2024 [facility] [address] [id number] 09/04/2024 [facility] [address] [place] [address] [id number] 09/16/2024 Cathie Coates Assessments Encounter Date Diagnosis (ICD Code) Assessment Notes Treatment Notes Treatment Clinical Notes 09/26/2024 Encounter for immunization (ICD-10 - Z23) 03/08/2024 Laceration without foreign body of left hand, initial encounter (ICD-10 - S61.412A) Laceration assessed - horizontal non jagged edged opening noted, minimal bleeding noted. Pressure dressing applied. Pt has last DTAP 2021, no providers in clinic to assess, offered to send pt to urgent care/ER for eval, pt states he will get ride with friend. Informed pt that pt must seek medical services within 24 hrs due to the need of possible sutures and risk of bleeding/infection. Pt again denied a ride and is adamant he will go with friend. Encouraged pt to rtc if that does not happen and we can assist with transport. Pt understands and agrees with plan. 03/26/2024 Unspecified psychosi s not due to a substance or known physiological condition (ICD-10 - F29) He apparently has caried vaious diagnosis from bipolar to ADHD to PTSD and psychosis. At rpesent I went to put him back on all-says better than zyprexaand encouraged his ICP to help him get back in to [facility] psych. Also need to finish intake lab work up I think his memory issue is psychosis, substance and PTSD comboined. May be best off in day prgram 03/26/2024 Encounter for screening for COVID-19 (ICD-10 - Z11.52) Covid screening is negative. Discussed in detail with patient how to practice social distancing by avoiding public spaces and crowds now, wearing a mask in public to keep nose and mouth covered, and washing hands frequently especially before eating and after using the bathroom. Return to clinic if you develop any symtpoms of concern to be rescreened or go to the emergency room if you are having concerning symptoms for COVID-19. 04/26/2024 Encounter for screening, unspecified (ICD-10 - Z13.9) 05/03/2024 Unspecified psychosi s not due to a substance or known physiological condition (ICD-10 - F29) We had him off zyprexa. For now starting risperidone-told him it will not work immediatealy-and increasing all form 300 to 400 tid. 05/03/2024 Post-traumatic stres s disorder, chronic (ICD-10 - F43.12) 05/28/2024 Opioid dependence, uncomplicated (ICD-10 - F11.20) He is reasaonably satisfied with 2 Suboxone a day but ets some sweats at night. I am disappinted he is not here live tez. He agrees to isidro in the iwek with nurse for onsite and send out ox sceens. If OK thenwill call him and discuss incerasing Suboxone to 2.5 or 3 films a day 05/28/2024 Encounter for screening for COVID-19 (ICD-10 - Z11.52) Covid screening is negative. Discussed in detail with patient how to practice social distancing by avoiding public spaces and crowds now, wearing a mask in public to keep nose and mouth covered, and washing hands frequently especially before eating and after using the bathroom. Return to clinic if you develop any symtpoms of concern to be rescreened or go to the emergency room if you are having concerning symptoms for COVID-19. 09/03/2024 Opioid dependence, uncomplicated (ICD-10 - F11.20) Tenuous but he feels he can hold off on using for a day and hten will restart Suboxone at 3 per day (4 mg test dose) instead of 2. He is aware of riks oif Suxone oin top of active use 09/03/2024 Encounter for screening for COVID-19 (ICD-10 - Z11.52) Covid screening is negative. Discussed in detail with patient how to practice social distancing by avoiding public spaces and crowds now, wearing a mask in public to keep nose and mouth covered, and washing hands frequently especially before eating and after using the bathroom. Return to clinic if you develop any symtpoms of concern to be rescreened or go to the emergency room if you are having concerning symptoms for COVID-19. 09/26/2024 Unspecified psychosi s not due to a substance or known physiological condition (ICD-10 - F29) Reviewed hx of psychiatric illness, treatment received and medication trials with client. Discussed current medications as to indications, actions and side effects. Reviewed risks benefits of treatment versus non treatment. Medication education provided. Patient given opportunity to ask questions. Patient gives informed consent to proceed with prescribed treatment. 1. [employer] RELOCATION COUNSELOR reviewed: see exam 2. Medications: cont as above until able to obtain collateral information 3. Psychotherapy; can arrange in future as needed. 4. Labs/Procedures: labs done by Dr. Coates, labs and EKG wnl. 5. Exercise/Nutrition: sleep, regular exercise and nutrition all have a direct impact on our health and well-being. Keeping them in balance is especially important when we face stressful times in our lives. Eat balanced meals, get 6-8 hours of sleep a night, daily walking as able. 6. Understands plan and verbalizes agreement, allowed time for clarifying questions. S/E of Antipsychotic Medication Olanzapine reviewed with client and may include but are not limited to: weight gain and metabolic syndrome, risk of EPS, sedation/dizziness, elevated prolactin, anticholinergic s/e, uncommon risk of TD and rare risk of NMS. Will require regular monitoring of wt, BP, Hgb A1C, lipids and AIMS exam. Common S/E of Gabapentin include but are not limited to: dizziness, somnolence, ataxia, wt gain. Serious but rare side effects multiorgan sensitivity DRESS), respiratory depression. FDA indicated for RLS, partial seizures, post herpetic neuralgia Off label uses: anxiety d/o, withdrawal from alcohol or benzos, alcohol dependence. 09/26/2024 Post-traumatic stres s disorder, chronic (ICD-10 - F43.12) Clonidine most common side effects include but are not limited to dry mouth, somnolence, dizziness, constipation, fatigue, headache. Serious but rare s/e include hypotension, syncope, orthostasis. Minimize s/e by administering at bedtime. Need to taper dose to avoid rebound hypertension. 11/15/2024 Opioid dependence, uncomplicated (ICD-10 - F11.20) difficult read and I think most of isue is his opaiate and cocaine use. We are trying to reduc eharm and will stay with Suboxone right now. has narcan access but would not hurt to rewrite. He declines recovery coahat present Wanbted cofirmatory UTOX but says he cannot go today (says slow stream0 11/15/2024 Encounter for screening for COVID-19 (ICD-10 - Z11.52) Covid screening is negative. Discussed in detail with patient how to practice social distancing by avoiding public spaces and crowds now, wearing a mask in public to keep nose and mouth covered, and washing hands frequently especially before eating and after using the bathroom. Return to clinic if you develop any symtpoms of concern to be rescreened or go to the emergency room if you are having concerning symptoms for COVID-19. 11/15/2024 Unspecified psychosi s not due to a substance or known physiological condition (ICD-10 - F29) Reviewed hx of psychiatric illness, treatment received and medication trials with client. Discussed current medications as to indications, actions and side effects. Reviewed risks benefits of treatment versus non treatment. Medication education provided. Patient given opportunity to ask questions. Patient gives informed consent to proceed with prescribed treatment. 1. [employer] RELOCATION COUNSELOR reviewed: see exam 2. Medications: cont as above until able to obtain collateral information 3. Psychotherapy: can arrange in future as needed. 4. Labs/Procedures: labs to be drawn today, c/o polyuria, foot numbness concern for DM. May consider starting metformin as clt on olanzapine. Will discuss with Dr. Coates further after labs resulted. BS in clinci today 138. 5. Exercise/Nutrition: sleep, regular exercise and nutrition all have a direct impact on our health and well-being. Keeping them in balance is especially important when we face stressful times in our lives. Eat balanced meals, get 6-8 hours of sleep a night, daily walking as able. 6. Understands plan and verbalizes agreement, allowed time for clarifying questions. S/E of Antipsychotic Medication Olanzapine reviewed with client and may include but are not limited to: weight gain and metabolic syndrome, risk of EPS, sedation/dizziness, elevated prolactin, anticholinergic s/e, uncommon risk of TD and rare risk of NMS. Will require regular monitoring of wt, BP, Hgb A1C, lipids and AIMS exam. Common S/E of Gabapentin include but are not limited to: dizziness, somnolence, ataxia, wt gain. Serious but rare side effects multiorgan sensitivity DRESS), respiratory depression. FDA indicated for RLS, partial seizures, post herpetic neuralgia Off label uses: anxiety d/o, withdrawal from alcohol or benzos, alcohol dependence. 08/15/2024 Unspecified psychosi s not due to a substance or known physiological condition (ICD-10 - F29) 03/26/2024 Post-traumatic stres s disorder, chronic (ICD-10 - F43.12) above 05/03/2024 Opioid dependence, uncomplicated (ICD-10 - F11.20) stable 05/28/2024 Unspecified psychosi s not due to a substance or known physiological condition (ICD-10 - F29) On phone he sounds much moreintact and less depresed today. We are continuing his risperidone and ohter meds for now. He is now in therapy and on wait list for prescriber 09/03/2024 Sheltered homelessness (ICD-10 - Z59.01) They are stil looking or housing but he says his PTSD and need for isolation work against him 09/26/2024 Opioid dependence, uncomplicated (ICD-10 - F11.20) Prescribed by Dr. Coates. 11/15/2024 Sheltered homelessness (ICD-10 - Z59.01) I willcontact [facility] re: hosuing issue. He professes to not understanwhy he has not been abvle to move out 11/15/2024 Post-traumatic stres s disorder, chronic (ICD-10 - F43.12) Clonidine most common side effects include but are not limited to dry mouth, somnolence, dizziness, constipation, fatigue, headache. Serious but rare s/e include hypotension, syncope, orthostasis. Minimize s/e by administering at bedtime. Need to taper dose to avoid rebound hypertension. 08/15/2024 Opioid dependence, uncomplicated (ICD-10 - F11.20) 03/26/2024 Opioid dependence, uncomplicated (ICD-10 - F11.20) sounds like he was not reliable at showing for methadone and he is now on lower dose. Says he will use occasionaly but really has kept away form opiates. States minimal MJ and no cocaine or alcohol 05/03/2024 Sheltered homelessness (ICD-10 - Z59.01) supported housing 09/03/2024 Post-traumatic stres s disorder, chronic (ICD-10 - F43.12) Major element. [facility] but he is to see [facility] in 2weeks 09/26/2024 Encounter for screening for COVID-19 (ICD-10 - Z11.52) Covid screening is negative. Discussed in detail with patient how to practice social distancing by avoiding public spaces and crowds now, wearing a mask in public to keep nose and mouth covered, and washing hands frequently especially before eating and after using the bathroom. Return to clinic if you develop any symtpoms of concern to be rescreened or go to the emergency room if you are having concerning symptoms for COVID-19. 11/15/2024 Tobacco use (ICD-10 - Z72.0) Stopped 11/15/2024 Opioid dependence, uncomplicated (ICD-10 - F11.20) Suboxone prescribed by Dr. Coates. 03/26/2024 Encounter for screening for infections with a predominantly sexual mode of transmission (ICD-10 - Z11.3) 09/03/2024 Encounter for immunization (ICD-10 - Z23) Screening performed for vaccine contraindications prior to administration. See scanned document. VIS reviewed. No contraindications for vaccine administration. Infuenza vaccine given per protocol. No adverse outcome with administration of vaccine. 11/15/2024 Polyneuropathy in diseases classified elsewhere (ICD-10 - G63) indistinct but nee to do meatbolic and inflammatory w/u see lab orders 11/15/2024 Encounter for screening for COVID-19 (ICD-10 - Z11.52) Covid screening is negative. Discussed in detail with patient how to practice social distancing by avoiding public spaces and crowds now, wearing a mask in public to keep nose and mouth covered, and washing hands frequently especially before eating and after using the bathroom. Return to clinic if you develop any symtpoms of concern to be rescreened or go to the emergency room if you are having concerning symptoms for COVID-19. 03/26/2024 Encounter for screening for human immunodeficiency virus [HIV] (ICD-10 - Z11.4) 09/03/2024 Diarrhea, unspecifie d (ICD-10 - R19.7) nonspecific and lufestyle related. Pushed ealthier food idea. Need to see what devlops 03/26/2024 Encounter for screening for lipoid disorders (ICD-10 - Z13.220) 03/26/2024 Encounter for screening for diabetes mellitus (ICD-10 - Z13.1) 03/26/2024 Encounter for immunization (ICD-10 - Z23) 03/26/2024 Tobacco use (ICD-10 - Z72.0) improved 03/26/2024 Sheltered homelessness (ICD-10 - Z59.01) iolated at [facility] and bnot sure if [facility] working on housing but would need supportive program 01/26/2024 Other 07/12/2024 Other 09/19/2024 Other 10/04/2024 Other 10/15/2024 Other 03/26/2024 Other 04/26/2024 Other Diagnostic labs drawn as ordered per protocol using aseptic technique. We will attempt to reach you by telephone to discuss the test results. If we cannot reach you by telephone, we will mail you your results to the address we have on file. In all cases, results will be reviewed at your next office visit. We will contact you sooner if you have a telephone or address where we can reach you for abnormal test results requiring immediate action. Labs drawn by: KW. Reviewed by: . 05/03/2024 Other I triedto call support kat re; BHN and REHABILITATION ASSISTANT. Left VM. also asking our sales planning manager to call hher 11 minute call 05/28/2024 Other Staff to checki n on REHABILITATION ASSISTANT status 09/03/2024 Other [facility] 09/26/2024 Other Screening perfo rmed for vaccine contraindications prior to administration. See scanned document. VIS reviewed. No contraindications for vaccine administration. Hepatitis A # 2 vaccine given per protocol. No adverse outcome with administration of vaccine. 09/26/2024 Other 11/15/2024 Other 11/15/2024 Other Plan Of Treatment Pending Test Test Name Order Date Drug Toxicology 11/15/2024 ANTI-NUCLEAR ANTIBODY 11/15/2024 CBC 11/15/2024 TSH CASCADE 11/15/2024 C-REACTIVE PROTEIN 11/15/2024 HEMOGLOBIN A1C 11/15/2024 Next Appt Details Provider Name:Cathieleeroy Coates, 01/17/2025 10:40:00 AM, [address] [place] [address], [phone], Provider Name:Kerri Dennyvey, 01/17/2025 11:00:00 AM, [address] [place] [address], [phone], Insurance Providers Payer Name Payer Address Payer Phone Subscriber Number Group Number Insured Name Patient Relationship to Insured Coverage Start Date Coverage End Date [place] C[place] [address] [place], [place] [id number] Jose Guadalupe Ellis Self - patient is the insured [place] [employer] [address] [place] [address] [id number] Jose Guadalupe Ellis Self - patient is the insured 2 Medical (General) History Medical History History ICD Code depression anxiety schizophrenia bipolar asthma Body mass index (BMI) 31.0-31.9, adult Z 68.31 Body mass index [BMI]30.0-30.9, adult Z6 8.30 Surgical History Surgery Date(Month/Year) R hand surgery 2009 Hospitalization History Reason Date(Month/Year) Multiple ER crisis visits, multiple Over doses Mental Crisis at [place] 2005
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
[2024-11-29 16:50] VITALS: BP 100/51; PULSE 70; RESP 14; O2SAT 95
--- NOTE | 2024-11-29 17:17 | PC.NURSE ---
Pt sleeping at this time; vss
[2024-11-29 21:54] VITALS: BP 133/86; PULSE 79; RESP 18; TEMP 36.8; O2SAT 99
[2024-11-30 01:43] VITALS: BP 121/76; PULSE 74; RESP 20; TEMP 36.5; O2SAT 98
[2024-11-30] MEDS: Naloxone HCl Nasal TAKE HOME 4 MG SPRAY 8 MG NOSTRILALT (02:18)
[2024-11-30 02:36] VITALS: BP 121/76; PULSE 74; RESP 20; TEMP 36.5; O2SAT 98
== END 2024-11-30 02:37 | disposition home or self-care (01) ==
PROVIDERS: Emergency Provider Emergency Medicine Emergency Medical Services
DX: T40.1X1A Poisoning by heroin, accidental (unintentional), initial encounter (principal); R40.4 Transient alteration of awareness; I49.8 Other specified cardiac arrhythmias; Y92.410 Unspecified street and highway as the place of occurrence of the external cause; Z71.51 Drug abuse counseling and surveillance of drug abuser; Z79.899 Other long term (current) drug therapy
CPT/HCPCS: 36415; 80048; 80307; 82947; 85025; 93005; 96372; 99285; J1200; J1630; J2060

== ENCOUNTER → 2024-11-29 15:10 | Outpatient (BNV) | payer MEDICAID, SELFPAY | PROVIDERS: Emergency Provider Emergency Medicine Emergency Medical Services; Visit Provider Internal Medicine | DX: I49.9 Cardiac arrhythmia, unspecified (principal); I25.2 Old myocardial infarction | CPT/HCPCS: 93010 ==